=== PATIENT | female | born 1950 | race Caucasian/White ===

== ENCOUNTER 2019-03-25 06:00 | Outpatient (RCR) | payer OTHER, MEDICARE, SELFPAY | END 2019-04-23 23:59 | disposition home or self-care (01) | LOC: SPT 06:00 | PROVIDERS: Family Provider Family Medicine; PCP Family Medicine; Visit Provider Orthopaedic Surgery | DX: Z47.1 Aftercare following joint replacement surgery (principal); Z96.651 Presence of right artificial knee joint | CPT/HCPCS: 97110; 97161 ==

== ENCOUNTER → 2019-04-14 09:23 | Outpatient (BNVA) | payer OTHER, MEDICARE, SELFPAY | PROVIDERS: Family Provider Family Medicine; PCP Family Medicine; Visit Provider Orthopaedic Surgery | DX: Z96.651 Presence of right artificial knee joint (principal); M17.11 Unilateral primary osteoarthritis, right knee; Z98.890 Other specified postprocedural states | CPT/HCPCS: 73560; 73565 ==

== ENCOUNTER 2019-04-24 06:00 | Outpatient (RCR) | payer OTHER, MEDICARE, SELFPAY | END 2019-05-22 23:59 | disposition home or self-care (01) | LOC: SPT 06:00 | PROVIDERS: Family Provider Family Medicine; PCP Family Medicine; Referring Provider Orthopaedic Surgery; Visit Provider Orthopaedic Surgery | DX: Z47.1 Aftercare following joint replacement surgery (principal); Z96.651 Presence of right artificial knee joint | CPT/HCPCS: 97110 ==

== ENCOUNTER → 2019-05-13 08:04 | Outpatient (BNVA) | payer OTHER, MEDICARE, SELFPAY | PROVIDERS: Family Provider Family Medicine; PCP Family Medicine; Visit Provider Orthopaedic Surgery | DX: Z96.651 Presence of right artificial knee joint (principal); M17.11 Unilateral primary osteoarthritis, right knee; Z98.890 Other specified postprocedural states; Z48.89 Encounter for other specified surgical aftercare | CPT/HCPCS: 73560; 73565 ==

== ENCOUNTER 2019-06-08 15:27 | Inpatient (IN) | payer OTHER, MEDICARE, SELFPAY ==
[2019-06-01 09:12] VITALS: BMI 29.0
[2019-06-01 09:45] LABS: Add Urine Microscopic? NO
--- NOTE | 2019-06-01 09:46 | ANES.PREANE2 ---
Pre-Anesthetic Assessment Pre-Anesthetic Assessment: Height/Weight: Height 1.55 m Weight 69.853 kg Preop Diagnosis: DJD left knee Proposed Procedure: Operation Date: 06/08/19 07:00 Proposed Procedures p Left Total Knee Arthroplasty With Imageless computer navigation [id number] M17.12(Left) - Kenton Dougherty DO Familial anesthetic complications: None Was Beta Kayla taken within 24 hours: N/A Social: Social History: No alcohol and No tobacco Exam: Pre-Anes Outpt Exam: alert, oriented x 3, clear to auscultation bilaterally and regular rate & rhythm Airway: Cervical ROM: WNL MP: 2 Dentition: Full Pulmonary: Pulmonary: None reported CV/HEM: CV/HEM: HTN : : None reported Hepatic: Hepatic: None reported GI: GI: None reported Metabolic: Metabolic: None reported Musc/skel: Musc/skel: None reported Neuropsych: Neuropsych: None reported Anesthetic Plan: ASA status: 2 Anesthesia: General and Regional (specify below) Other: adductor Risk of > 500 ml blood loss (7ml/kg in children): No PFSH Anesthesia PFSH: Social History Smoking and tobacco status: never smoked Alcohol intake: never Data Anesthesia Cardiac Studies: No Data to Display
[2019-06-01 09:58] LABS: Eosinophils # 0.2 10^3/uL (0.0-0.8); Hematocrit 42.7 % (37.0-47.0); Hemoglobin 13.3 g/dL (11.5-15.3); Lymphocytes # 1.2 10^3/uL (0.8-4.8); Lymphocytes % 28.4 %; Mean Corpuscular HGB Conc 31.1 g/dL (30.0-36.0); Mean Corpuscular Hemoglobin 29.6 pg (28.0-34.0); Mean Corpuscular Volume 94.9 fL (81-99); Mean Platelet Volume 9.1 fL (7.4-10.4); Monocytes # 0.3 10^3/uL (0.2-0.9); Monocytes % 8.1 %; Neutrophils # 2.4 10^3/uL (1.8-7.7); Neutrophils % 58.3 %; Nucleated Red Blood Cells % 0 %; Platelet Count 306 10^3/cmm (130-400); Red Cell Distribution Width 12.6 % (12.1-15.1); White Blood Count 4.1 10^3/uL (4.0-10.0)
[2019-06-01 10:09] LABS: Bilirubin Urine Neg (NEGATIVE); Blood Urine Neg (Negative); Glucose Urine UA Norm (Normal); Ketones Urine Negative (Negative); Leukocyte Esterase Urine Negative (Negative); Nitrate Urine Negative (Negative); Protein Urine Neg (Negative); Specific Gravity, Urine 1.005 (1.005-1.030); Urine Appearance Clear (CLEAR); Urine Color Straw (Yellow); Urobilinogen Urine Norm (Negative)
[2019-06-01 10:10] LABS: Anion Gap 14.5 (5-19); Blood Urea Nitrogen 21 mg/dL (8-23); Calcium 9.6 mg/dL (8.5-10.5); Carbon Dioxide 25 mmol/L (22-29); Chloride 102 mmol/L (98-107); Glomerular Filtration Rate 62.5 mL/min (90-130); Glucose 100 mg/dL (65-115); Osmolality Calculated 281 mOsm/kg (285-295); Potassium 4.5 mmol/L (3.5-5.1); Sodium 137 mmol/L (136-145)
[2019-06-08] VITALS (13 sets, daily range): BP systolic 122–175; BP diastolic 78–95; PULSE 67–88; RESP 14–20; TEMP 36–36.6; O2SAT 94–99
--- NOTE | 2019-06-08 11:05 | ECG_ITS ---
Measurements Intervals Adams Rate: 75 P: 25 UT: 158 QRS: 9 QRSD: 90 T: 12 QT: 377 QTc: 422 SINUS RHYTHM Compared to ECG 02/12/2019 08:57:56 No significant changes Electronically Signed On 06-08-2019 13:07:32 CDT by Jud Patterson M.D. [email or web address]
[2019-06-08] MEDS: vancomycin 1,000 MG in sodium chloride 0.9% 250 ML 250 MG IV (11:19)
[2019-06-08] MEDS: gabapentin 300 mg Capsule PO (11:22)
[2019-06-08] MEDS: CELEcoxib 200 mg Capsule 400 MG PO (11:24)
[2019-06-08] MEDS: acetaminophen 500 mg Tablet 1000 MG PO ×2 (11:26→20:07)
--- NOTE | 2019-06-08 12:05 | W.PM.OPSUD ---
Surgery/Procedure H&P Update DATE OF PROCEDURE: June 08, 2019 DATE H&P PERFORMED: 05/13/19 H&P UPDATE INFORMATION: I have reviewed H&P completed within last 30 days and No changes to prior documentation PREOP DIAGNOSIS: DJD left knee PRIMARY INDICATION FOR PROCEDURE: as above PLANNED PROCEDURE: Operation Date: 06/08/19 12:35 Proposed Procedures p Left Total Knee Arthroplasty With Imageless computer navigation [id number] M17.12(Left) - Kenton Dougherty DO
--- NOTE | 2019-06-08 12:10 | PM.OP ---
Operative Report Pre-op Diagnosis: DJD left knee Post-op diagnosis: same Procedure Done: Left total knee arthroplasty Imageless computer-assisted navigation Implants: [place] triathlon total knee implants Specimens removed/disposition: Bone and cartilage left knee Surgeon: Kenton Dougherty Anesthesia: Nerve Block (Single shot adductor canal block) Estimated blood loss (mL): 25 Tourniquet time (min): 110 Tourniquet time: At 300 mmHg pressure Findings: Advanced DJD left knee Condition: stable Disposition: PACU Procedure: 2 g Ancef 1 g vancomycin 1 g TXA at incision and at time of closure See other full operative report dated at approximately 1639 hrs.
[2019-06-08] MEDS: midazolam 1 mg/mL INJ 5 ML 5 MG IVP (12:23)
[2019-06-08] MEDS: fentaNYL 50 mcg/mL INJ 2mL 100 MCG IVP (12:24)
--- NOTE | 2019-06-08 12:37 | SUR.PREOP ---
THIS NURSE NOTIFIED PATIENT SHE WOULD HAVE A ISHA-PRIVATE ROOM FOLLOWING SURGERY. SHE WISHES TO PROCEED WITH SURGERY.
--- NOTE | 2019-06-08 14:04 | ANES.PROC ---
Anesthesia Procedures Procedure/Date: 06/08/19 Nerve Block ^: Nerve Block 1: Main Anesthesia: general anesthesia Time Out Performed: Yes Consent: requested by attending/covering physician, risks and benefits reviewed and patient agrees to proceed Nerve block location: adductor canal (left) Anesthesia monitors applied: pulse oximetry, EKG, BP cuff and oxygen Nerve block position: supine Anesthetic Used: ropivicaine 0.5% (30ml) and with decadron (4mg) Amount of anesthesia used (mL): 30 Ultrasound used to: recognize landmarks Nerve Stimulator Used?: No Interscalene/Femoral BLK: 4 stimuplex 21 g needle used for position and inplane approach, visualize local anesthetic spread and no vascular puncture identified Injection: neg aspiration of heme Patient Tolerated Procedure: well and no complications Complications: none
[2019-06-08] MEDS: vancomycin 1,000 MG SDV 1000 MG XX (14:49)
--- NOTE | 2019-06-08 16:39 | PM.OP ---
Operative Report Date of procedure: June 08, 2019 Pre-op Diagnosis: DJD left knee Post-op diagnosis: same Post-op Findings: Advanced DJD left knee Procedure Done: Left total knee arthroplasty with resurfacing of distal femur, proximal tibia and patella Imageless computer-assisted navigation Implants: [place] triathlon knee implants Asymmetric patella 35 mm x 10 mm thickness Speed tibial baseplate size 4 Cemented posterior stabilized femoral component size 4 left 2 distal femoral fixation plugs Triathlon X3 tibial bearing insert posterior stabilized size four 16mm thickness 2 packages of Pal[place]os cement with tobramycin for added antimicrobial prophylaxis Specimens removed/disposition: Bone and cartilage from left knee submitted to pathology Surgeon: Kenton Dougherty Anesthesia: General and Nerve Block (Single shot adductor canal block) Estimated blood loss (mL): 25 Tourniquet time (min): 110 IV fluids (mL): 1,100 Urine output (mL): 850 Complications: No apparent complications Findings: Tricompartmental DJD Condition: stable Disposition: PACU (Then to [facility] floor) Brief History: 69-year-old white female with bilateral progressive disabling knee pain. She is undergone a right total knee arthroplasty she presents for elective left total knee arthroplasty. Risk, benefits and potential complications of surgery have been discussed with the patient. She is aware that risks include are not limited to failure to leave all pain, stiffness, potential for loosening or breakage about the prosthesis that could require revision surgery. Other medical complications include infection, blood clots, heart attack, stroke risk up to including . All questions answered patient agreeable to proceed with surgery. Procedure: 2 g Ancef 1 g vancomycin 1 g of TXA prior to incision and at wound closure [place] triathlon knee components Size 4 left femur posterior stabilized, cemented with distal pegs Size 4 tibia universal baseplate Size 4 x 16 mm posterior stabilized tibial articular surface 2 packages of Palacos cement with tobramycin Patient identified. Surgical site signed. Surgical permit signed. Patient received 1.0 g of Vancomycin and 2 g of Ancef for antimicrobial prophylaxis. Anesthesia team performed an adductor canal block in the preoperative holding area. She was taken to the operating room. She was placed under general anesthesia. A landis catheter was placed for urinary drainage. A gel bump was placed under the ipsilateral buttock. A tourniquet was placed about the upper aspect of the operative left limb. The operative limb was then sterilely prepped and draped usual fashion. The operative limb was exsanguinated using an Esmarch bandage and the tourniquet inflated to 300 mm Hg pressure. A 20 cm midline incision was made with a skin knife. Full-thickness skin flaps were made. Skin edge bleeders were coagulated with electrocautery. Using a second knife we perform a medial parapatellar arthrotomy. Soft tissues were released off the anteromedial aspect of the tibia to the posterior medial corner of the tibia with second knife and Duarte elevator. The anterior horns of the medial and lateral menisci were released and resected. Partial fat pad resection was performed with sharp dissection. The anterior posterior cruciate ligaments were divided sharply. Using electrocautery the lateral patellofemoral ligament was divided. The knee was placed in full extension. The patella was everted. Marginal osteophytes were removed. Electrocautery was taken around the periphery of the patella. The patella cartilage was severely worn in appearance. The patella measured 24 mm in thickness. The patella was reamed to a residual thickness of 14 mm. I elected to resurface the patella with an asymmetric patellar button. A 35 mm template was applied to the tibial surface and peg holes were drilled. The 35 mm by 10 mm in thickness patella trial fit nicely on the cut surface and essentially covered all of the patella.the measured thickness of the patellar trial in the remaining patella measured 24 mm which reproduced the patient's original anatomy. The knee was flexed to 60?. A guidepin for the GemfireAlign navigation device was inserted on the distal femur on Whitesides line. We measured for the anterior posterior offset and input the number. We attached the anterior reference unit. We maneuvered the leg to register the femur. We then set the resection plane at 0? of varus/valgus from the mechanical axis and flexion at 4? for the femoral component. We set the distal femoral resection guide for 11 mm due to the presence of a flexion contracture.. Using an oscillating saw we performed the distal femoral cut. We then secured the tibial cutting jig on the tibia and held in place with a rubberized strap. The guide was put in place and the medial one third of the tibial tubercle and was secured with 3 pins. Tibial registration was performed by first reading and then adjust the distal offset to match the midline probe offset. The side levers were unlocked and we extended the distal probe to match offsets. We then registered the lateral followed by the medial malleolus. We set the varus/valgus angle to 0? and set the posterior slope to 0 degrees. We used the 2 mm stylus set our depth for tibial resection. We then used the oscillating saw to perform our proximal tibial cut. We now at checked our extension space and we were able to put a size 13 spacer in with good stability and to full extension. We sized the femur for a size 4 using the anterior referencing guide. Rotation was set at 3? of external rotation. The 4-in-1 cutting guide was put into place and an samira wing was placed through the anterior cutting guide to assess for the potential of anterior notching. The samira wing passed anterior to the femoral cortex. The 4-in-1 cutting block was pinned into place and the anterior and posterior as well as the chamfer cuts were then performed. The PS cutting block was pinned into place and the box cut was made with an oscillating saw. Lug holes were drilled. A size 4 femoral box cut component was then put on the distal femur. Box cut was then made with reciprocating saw. The knee was flexed to 110? and a PCL retractor was used to subluxate the tibia anteriorly with respect to the femur.The tibia was sized for a size 4. With a 13 mm trial posterior stabilized tibial bearing surface in place the knee was placed through a range of motion the knee could flex to 105 degrees the knee came to full extension. The knee was felt to be stable at 90 degrees of flexion and extension. We removed trial components this improved with a 13 mm thickness trial spacer. We set the rotation by putting the knee through a range of motion and using electrocautery to sudheer rotation on the tibia.The size 4 tibial plate was held in place using headed pins.We then drilled for the stem and punch for the keel. A trial reduction was performed with a 13 mm trial articular surface the knee was able to come to near full extension with a mild degree of effort flexion 110?. The patella tracked nicely with a no touch technique. All trial components were removed from the knee. The knee was irrigated with pulsatile lavage containing antibiotic solution and the joint was dried. We then mixed 2 bags of low viscosity cement with Tobramycin. Tobramycin for additional antimicrobial prophylaxis. The patellar component was cemented in place and held there with the patellar clamp. The Size 4 posterior stabilized femoral component component was cemented into position.. Excess cement was removed using a [place] elevator. The size 4 tibial universal baseplate was cemented and was then impacted into place and the knee was reduced. The cement was allowed to harden. A trial size 4 x 13 mm thickness posterior stabilized tibial articular surface was inserted into place. Components were reduced into position. The knee came to slightly past full extension flexion easily to 110?. The knee was stable to varus /valgus stress. The patella tracked nicely with a no touch technique. Due to the knee coming to slight hyperextension with the trial 13 mm spacer elected to insert an actual 16mm thickness size 4 posterior stabilized articular surface. This was inserted and impacted into place and the knee reduced. The knee was stable to varus/ valgus stress extension and flexion of 90?. The knee came to just slightly shy of full extension. The knee was then irrigated with Betadine-containing saline solution and antibiotic containing saline solution. The knee tendons and capsular structures and joint line were injected with 120 mL of a solution containing Exparel 0.25% Marcaine and sterile saline.FloSeal was then placed in the wound for additional hemostasis within the joint was dried. Vancomycin powder was placed and capsular closure was performed with permanent as well as absorbable barbed suture. The subcutaneous layer was irrigated with Betadine-containing saline solution and antibiotic containing saline solution. Vancomycin powder was also placed in this layer. The tourniquet was deflated. The patient received 1 g of Tranexamic acid intravenously for additional hemostasis prior to closure The wound was then closed in layers with migue on skin as well as skin glue. Sterile dressings were then applied. A compressive Adriel wrap was applied from ankle to groin. The patient was aroused from general anesthesia. Patient was taken to recovery room. Patient tolerated the procedure well. All counts were correct.
--- NOTE | 2019-06-08 17:00 | SUR.PHASEI ---
7271 PT TO PACU SLEEPY WITH GOOD RESP EFFORT ORAL AIRWAY IN PLACE LT KNEE DRESSING D/I
--- NOTE | 2019-06-08 17:04 | SUR.PHASEI ---
1452 PT AWAKES ORAL AIRWAY OUT PT DENIES PAIN VSS LT KNEE D/I 1704 X RAY HERE, PT DENIES PAIN VSS PT ON RA SATS 95%
--- NOTE | 2019-06-08 17:13 | XR_ITS ---
WS: [id number] XR knee LT 1-2V 07593 REASON FOR EXAM: POST OP PIC FINDINGS: Total knee replacement on the left side. The hardware seen in good position. XR/XR knee LT 1-2V 54727 IMPRESSION: Total knee replacement satisfactory alignment.
--- NOTE | 2019-06-08 17:37 | SUR.PHASEI ---
1720 PT TO FLOOR PT AT HOME DR ARTEAGA TALKED WITH HIM PER PHONE AND WITH PT ON FLOOR, PT ALERT TALKATIVE WITH NURSE MITCHELL IN ROOM, PT TAKING SIPS OF COKE, VSS.
--- NOTE | 2019-06-08 17:38 | SUR.PHASEI ---
1720 CONTINUED PT DRESSING TO LT KNEE D/I DISTAL PULSE STRONG REGULAR, LOPEZ TO DD WITH LT CLEAR YELLOW URINE IN TUBING AND BAG, TAPE TO RT THIGH TO SECURE CATHETER.
[2019-06-08] MEDS: chlorhexidine gluconate 0.12% Btl 473 mL 30 ML MUCOUS MEM ×2 (20:05→21:06)
[2019-06-08] MEDS: sennosides-docusate Tablet 2 TAB PO (20:06)
[2019-06-08] MEDS: iron polysaccharide complex 150 mg Capsule PO (20:07)
[2019-06-08] MEDS: mupirocin oint 22 gm 1 APPLIC NASAL (20:08)
[2019-06-08] MEDS: ketorolac 30 mg/mL INJ 15 MG IVP (20:08)
[2019-06-08] MEDS: calcium carbonate 500 mg Chew Tablet 1000 MG PO (21:06)
[2019-06-08] MEDS: apixaban 5 mg Tablet 2.5 MG PO (23:39)
[2019-06-09] VITALS (7 sets, daily range): BP systolic 119–160; BP diastolic 71–85; PULSE 78–98; RESP 16–20; TEMP 36.6–37; O2SAT 92–99
[2019-06-09] MEDS: acetaminophen 500 mg Tablet 1000 MG PO ×3 (01:26→18:07)
[2019-06-09 06:46] LABS: Basophils % 0.2 %; Hemoglobin 12.4 g/dL (11.5-15.3); Lymphocytes # 0.7 10^3/uL (0.8-4.8); Lymphocytes % 6.8 %; Mean Corpuscular HGB Conc 31.8 g/dL (30.0-36.0); Mean Corpuscular Hemoglobin 30.5 pg (28.0-34.0); Mean Corpuscular Volume 95.8 fL (81-99); Mean Platelet Volume 9.5 fL (7.4-10.4); Monocytes # 0.6 10^3/uL (0.2-0.9); Monocytes % 5.5 %; Neutrophils # 8.8 10^3/uL (1.8-7.7); Neutrophils % 87.1 %; Nucleated Red Blood Cells % 0 %; Platelet Count 311 10^3/cmm (130-400); Red Blood Count 4.07 10^6/uL (4.1-5.3); Red Cell Distribution Width 12.6 % (12.1-15.1); White Blood Count 10.1 10^3/uL (4.0-10.0)
[2019-06-09 07:02] LABS: Anion Gap 13.4 (5-19); Blood Urea Nitrogen 18 mg/dL (8-23); Calcium 9.5 mg/dL (8.5-10.5); Carbon Dioxide 26 mmol/L (22-29); Chloride 101 mmol/L (98-107); Glomerular Filtration Rate 55.3 mL/min (90-130); Glucose 119 mg/dL (65-115); Osmolality Calculated 280 mOsm/kg (285-295); Potassium 4.4 mmol/L (3.5-5.1); Sodium 136 mmol/L (136-145)
--- NOTE | 2019-06-09 07:24 | P.PN_ITS ---
Subjective Subjective: Interval history: 69-year-old white female postoperative day 1 following left total knee arthroplasty with imageless computer assisted navigation for general arthritis. No immediate intraoperative or postoperative complications. Plan is to give the patient in-house stay to ensure pain control and safety to ambulate prior to being discharged home. Fernandez catheter to be r emoved today Vitals/I&O/Wt Last Vital Signs Temp 98.6 F 06/09/19 05:20 Pulse 84 06/09/19 05:20 Resp 20 H 06/09/19 05:20 BP 138/85 06/09/19 05:20 Pulse Ox 95 06/09/19 05:20 06/08/19 06/09/19 06/09/19 22:59 06:59 14:59 Intake Total 500 / 550 Output Total 1725 / 1725 1100 / 2825 Balance -1225 / -1175 -1100 / -2275 Physical Exam Narrative: EXAM NARRATIVE: 69-year-old white female in no acute distress. She is alert and cooperative. Pain rated 4/10. Const: COMMON NORMALS: no apparent distress and oriented x3 GENERAL APPEARANCE: cooperative and well developed; not in distress Neck/C-Spine: COMMON NORMALS: no JVD Resp: COMMON NORMALS: normal respiratory effort and clear to auscultation bilaterally AUSCULTATION: clear to auscultation bilaterally Cardio: COMMON NORMALS: no JVD, regular rate, regular rhythm, S1 normal heart sound and S2 normal heart sound RATE: regular rate RHYTHM: regular rhythm HEART SOUNDS: S1 normal and S2 normal Extremity: RIGHT LOWER EXTREMITY: Yes lower leg Right lower leg: Yes special tests Right lower leg special tests: Haritha's sign: Negative LEFT LOWER EXTREMITY: Yes knee joint (dressing clean dry and intact) and Yes lower leg Left lower leg: Yes special tests Left lower leg special tests: Haritha's sign: Negative Neuro: COMMON NORMALS: oriented x3 Urinary Catheter Management^: F: Cath Placed During This Visit: yes Urinary Catheter Date of Insertion: 06/08/19 Urinary Catheter Time of Insertion: 14:30 Data : 06/09/19 05:55 06/09/19 05:55 A&P Assessment and plan (1) Status post total left knee replacement: Finish postoperative IV antibiotics Remove Fernandez catheter Pain control Mobilize VTE prophylaxis mobilization, sequential compression devices and Eliquis. Patient highest risk for VTE. Patient requires continued inpatient level care to ensure adequate pain control that she is able to mobilize safely prior to being discharged home with home health Status: Acute Code(s): Z96.652 - Presence of left artificial knee joint (2) Status post total right knee replacement: surgery performed last year Status: Acute Code(s): Z96.651 - Presence of right artificial knee joint Attestations Medical Necessity Statement*: see assessment and plan above. patient requires continued inpatient level care following left total knee arthroplasty to ensure adequate pain control and to monitor for possible need for transfusion. The patient continues to do well will discharge tomorrow at the earliest. Time Spent in Patient Care: 16 - 35 minutes Coding Level of Care Code Acute Landscape And Yardwork Laborer for Michaelle Osei Diagnoses Status post total left knee replacement Z96.652 Status post total right knee replacement Z96.651
[2019-06-09] MEDS: calcium carbonate 500 mg Chew Tablet 1000 MG PO ×2 (09:19→18:08)
[2019-06-09] MEDS: multivitamin therapeutic Tablet 1 TAB PO (09:19)
[2019-06-09] MEDS: sennosides-docusate Tablet 2 TAB PO ×2 (09:20→18:07)
[2019-06-09] MEDS: losartan 50 mg Tablet 25 MG PO (09:20)
[2019-06-09] MEDS: cholecalciferol (vitamin D3) 1,000 unit Tablet 1000 UNIT PO (09:20)
[2019-06-09] MEDS: iron polysaccharide complex 150 mg Capsule PO ×2 (09:21→18:08)
[2019-06-09] MEDS: apixaban 5 mg Tablet 2.5 MG PO ×2 (09:21→18:07)
[2019-06-09] MEDS: chlorhexidine gluconate 0.12% Btl 473 mL 30 ML MUCOUS MEM ×4 (09:22→20:02)
[2019-06-09] MEDS: mupirocin oint 22 gm 1 APPLIC NASAL ×2 (09:27→18:08)
--- NOTE | 2019-06-09 10:26 | PC.CHAP ---
Pastoral Care Encounter/Spiritual Assessment Type of Contact [] Declined bulkhead carpenter visit [] Patient/Family/Request visit [] Outpatient visit [] Follow-up visit [] Physician referral [] Code/Alert [x] Routine visit [] Staff referral [] Actively dying [] Patient sleeping [] Family support [] [] Out of room [] Palliative care [] [] Receiving care in room [] Pre-surgical visit [] Trauma [] Long length of stay [] ICU visit [] Other: Relational/Emotional Strength [x] Patient feels connected with others/family/visitors/staff [] Distress [] Loneliness/isolation [] Abandonment Spirituality of Patient [x] Person of Anushka [x] Attends Cheondoism of their Anushka [] Believes in Prayer [] Reads Bible or Alevism materials [] There are Spiritual issues to be addressed Desktop Architect Interventions [] Prayer [] Active listening [] Non-anxious presence [] Spiritual/emotional support [] Crisis/trauma care [] Spiritual counseling [] Bereavement support [] Provided bereavement packet [] Provided Bible/devotional materials [] Provided toy/stuffed animal, coloring book to patient or family member [] Provided Communion [] Anointing/[place] [] Salvation [x] Completed spiritual assessment [] Other: Impact on Illness or Injury [] Angry [] Fearful [] Anxious [] Often cries [] Exhaustion [] Unable to work [] Unable to attend voodoo [] Unable to walk/stand [] Unable to read [] Unable to drive [] Unable to eat/drink [] Unable to sleep [] Unable to be with family [] Patient intubated [] Other: Summary patient doing good very happy Time spent with patient 15 min
[2019-06-09] MEDS: vancomycin 1,000 MG in sodium chloride 0.9% 250 ML 250 MG IV (12:29)
[2019-06-09] MEDS: ketorolac 30 mg/mL INJ 15 MG IVP (12:38)
--- NOTE | 2019-06-09 22:42 | PM.DCS ---
Discharge Providers Date of Admission: 06/08/19 15:27 Date of Discharge: June 10, 2019 Attending Provider at Admission: Kenton Dougherty DO Attending Provider at Discharge: Kenton Dougherty DO Primary Care Provider: Terrence Broussard MD Diagnoses at Discharge Discharge Diagnosis (1) Status post total left knee replacement: Status: Acute Problem details: this admission (2) Status post total right knee replacement: Status: Acute Problem details: last year Reason for Visit Reason for Visit: Reason For Visit: degenerative arthritis left knee Brief History: 69-year-old white female with progressive disabling bilateral knee pain. Last year she underwent right total knee arthroplasty. She presents to the hospital this admission for left total knee arthroplasty Hospital Course Hospital Course: Patient was taken to surgery on the date of admission. She underwent left total knee arthroplasty with imageless computer assisted navigation. Surgery went well without complication. Immediate postoperative x-ray show satisfactory placement of components. She received vancomycin and Ancef for surgical prophylaxis intravenously. She was started on sequential compression devices, mobilization and Eliquis for VTE prophylaxis. [facility]. Fernandez catheter was removed on postoperative day 1. Her dressing was clean dry and intact. No calf tenderness bilaterally. Her pain was able to be controlled at the time of discharge oral medication. On postoperative day 2 she was started on extended oral prophylaxis with Ceftin 500 mg by mouth twice a day. She is continued on Eliquis for 2 weeks postoperatively 2.5 mg by mouth twice a day for VTE prophylaxis. Arrangements were made for home health. She will follow-up in the office in approximately 2 weeks time for staple removal. Discussions be had at that time for formal physical therapy and outpatient basis Discharge Summary: see above Physical Exam Narrative: EXAM NARRATIVE: 69-year-old white female doing well following left total knee arthroplasty Const: COMMON NORMALS: no apparent distress and oriented x3 GENERAL APPEARANCE: cooperative and comfortable Resp: COMMON NORMALS: normal respiratory effort and clear to auscultation bilaterally AUSCULTATION: clear to auscultation bilaterally Cardio: COMMON NORMALS: regular rate and regular rhythm RATE: regular rate RHYTHM: regular rhythm GI: COMMON NORMALS: normal to inspection, nondistended, normoactive bowel sounds, soft to palpation and non-tender AUSCULTATION: Yes normoactive bowel sounds PALPATION: Yes soft Extremity: NARRATIVE EXTREMITY EXAM: left knee dressing clean dry and intact. No calf tenderness bilaterally Neuro: COMMON NORMALS: oriented x3 Urinary Catheter Management^: F: Cath Placed During This Visit: yes Urinary Catheter Date of Insertion: 06/08/19 Urinary Catheter Time of Insertion: 14:30 Discharge Data Data Completed and Pending: Completed Studies During Hospitalization Category Date Time Status XR knee LT 1-2V 7 3560 Routine Exams 06/08/19 17:13 Completed Pending at discharge Category Date Time Status Basic Metabolic P delia AM LABS Lab 06/10/19 04:00 Ordered Complete Blood Co unt w/Auto AM LABS Lab 06/10/19 04:00 Ordered Pathology: Surgic al [PTH] Routine Pth 06/08/19 16:34 Received Labs from last 24 hours 06/09/19 06/09/19 05:55 05:55 WBC 10.1 H RBC 4.07 L Hgb 12.4 Hct 39.0 MCV 95.8 MCH 30.5 MCHC 31.8 RDW 12.6 Plt Count 311 MPV 9.5 Neut % (Auto) 87.1 Lymph % (Auto) 6.8 Villalba % (Auto) 5.5 Eos % (Auto) 0.0 Baso % (Auto) 0.2 Neut # (Auto) 8.8 H Lymph # (Auto) 0.7 L Villalba # (Auto) 0.6 Eos # (Auto) 0.0 Baso # (Auto) 0.0 Nucleated RBC % (a uto) 0 Nucleated RBCs # 0.0 Sodium 136 Potassium 4.4 Chloride 101 Carbon Dioxide 26 Anion Gap 13.4 BUN 18 Creatinine 1.0 H GFR Calculation 55.3 L Glucose 119 H Calculated Osmolal ity 280 L Calcium 9.5 Vitals: Last Vital Signs Temp 98.6 F 06/09/19 19:06 Pulse 97 06/09/19 19:06 Resp 18 06/09/19 19:06 BP 160/72 06/09/19 19:06 Pulse Ox 94 06/09/19 19:06 Discharge Plan Discharge Patient Disposition: Home Health Service Condition: Stable Prescriptions: New oxycodone-acetaminophen 5-325 mg tablet 1 tab PO Q4H PRN (Reason: pain) 7 Days Qty: 40 RF: 0 Eliquis 2.5 mg tablet 2.5 mg PO BID Qty: 28 RF: 0 doxycycline monohydrate 100 mg capsule 100 mg PO BID 7 Days Qty: 14 RF: 0 Continued losartan 25 mg tablet 25 mg PO DAILY RF: 0 Vitamin C 1,000 mg Tablet 500 mg PO DAILY RF: 0 Calcium 600 with Vitamin D3 1 tab PO DAILY RF: 0 Discharge Orders: Discharge Order (Routine); Ordered 06/09/19 Ordered By: Kenton Dougherty Referrals: [facility] [place] [facility] ([facility]) [Outside] Kenton Dougherty DO [Physician] - 06/23/19 10:00 am (wound check, staple removal) Discharge Diet: Usual diet Discharge Activity: Limit activity as instructed, Use walker/crutches as instructed and As per PT/OT instructions Patient Instructions: Doxycycline (By mouth), Oxycodone/Acetaminophen (By mouth), Apixaban (By mouth), Total Knee Replacement (DC) Activity Restrictions/Additional Instructions: gait and transfer training begin with walker may progress to cane as tolerated Quad sets, active and passive range of motion. 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
[2019-06-10] VITALS (7 sets, daily range): BP systolic 158–162; BP diastolic 74–90; PULSE 91–106; RESP 16–20; TEMP 36.7–37; O2SAT 93–97
[2019-06-10] MEDS: acetaminophen 500 mg Tablet 1000 MG PO ×2 (00:22→04:58)
[2019-06-10] MEDS: ketorolac 30 mg/mL INJ 15 MG IVP (04:57)
[2019-06-10 08:32] LABS: Basophils % 0.3 %; Eosinophils % 0.3 %; Hematocrit 32.9 % (37.0-47.0); Hemoglobin 10.4 g/dL (11.5-15.3); Lymphocytes # 1.1 10^3/uL (0.8-4.8); Lymphocytes % 17.7 %; Mean Corpuscular HGB Conc 31.6 g/dL (30.0-36.0); Mean Corpuscular Hemoglobin 30.3 pg (28.0-34.0); Mean Corpuscular Volume 95.9 fL (81-99); Mean Platelet Volume 9.8 fL (7.4-10.4); Monocytes # 0.5 10^3/uL (0.2-0.9); Monocytes % 8.8 %; Neutrophils # 4.4 10^3/uL (1.8-7.7); Neutrophils % 72.7 %; Nucleated Red Blood Cells % 0 %; Platelet Count 278 10^3/cmm (130-400); Red Blood Count 3.43 10^6/uL (4.1-5.3); Red Cell Distribution Width 13.1 % (12.1-15.1); White Blood Count 6.1 10^3/uL (4.0-10.0)
[2019-06-10] MEDS: calcium carbonate 500 mg Chew Tablet 1000 MG PO (08:32)
[2019-06-10] MEDS: cholecalciferol (vitamin D3) 1,000 unit Tablet 1000 UNIT PO (08:32)
[2019-06-10] MEDS: mupirocin oint 22 gm 1 APPLIC NASAL (08:32)
[2019-06-10] MEDS: losartan 50 mg Tablet 25 MG PO (08:33)
[2019-06-10] MEDS: apixaban 5 mg Tablet 2.5 MG PO (08:33)
[2019-06-10] MEDS: multivitamin therapeutic Tablet 1 TAB PO (08:33)
[2019-06-10] MEDS: iron polysaccharide complex 150 mg Capsule PO (08:34)
[2019-06-10] MEDS: chlorhexidine gluconate 0.12% Btl 473 mL 30 ML MUCOUS MEM (08:34)
[2019-06-10] MEDS: oxyCODONE 5 mg IR Tab/Cap PO (08:40)
[2019-06-10 08:55] LABS: Anion Gap 17.3 (5-19); Blood Urea Nitrogen 27 mg/dL (8-23); Calcium 9.1 mg/dL (8.5-10.5); Carbon Dioxide 22 mmol/L (22-29); Chloride 104 mmol/L (98-107); Glomerular Filtration Rate 55.3 mL/min (90-130); Glucose 85 mg/dL (65-115); Osmolality Calculated 284 mOsm/kg (285-295); Potassium 4.3 mmol/L (3.5-5.1); Sodium 139 mmol/L (136-145)
== END 2019-06-10 13:42 | disposition home health service (06) | DRG 470 ==
LOC: MEDSURG 15:27
PROVIDERS: Admitting Provider Orthopaedic Surgery; Family Provider Family Medicine; PCP Family Medicine; Visit Provider Orthopaedic Surgery
PROC: 0SRD0J9 Replacement of Left Knee Joint with Synthetic Substitute, Cemented, Open Approach (ICD-10-PCS; CPT 27447; principal; 2019-06-08 12:35)
DX: M17.12 Unilateral primary osteoarthritis, left knee (principal); Z96.652 Presence of left artificial knee joint; I10 Essential (primary) hypertension
CPT/HCPCS: 12345; 36415; 51702; 73560; 80048; 81003; 85025; 86850; 86900; 88304; 93005; 96374; 96375; 97110; 97116; 97162; 97165; 97530; C1776; C9290; J0330; J0690; J1100; J1580; J1885; J2001; J2250; J2405; J2704; J2795; J3010; J3370; J3490; J7050

== ENCOUNTER 2019-07-12 06:00 | Outpatient (RCR) | payer OTHER, MEDICARE, SELFPAY | END 2019-07-22 23:59 | disposition home or self-care (01) | LOC: SPT 06:00 | PROVIDERS: Family Provider Family Medicine; PCP Family Medicine; Referring Provider Orthopaedic Surgery; Visit Provider Orthopaedic Surgery | DX: Z47.89 Encounter for other orthopedic aftercare (principal); Z96.652 Presence of left artificial knee joint | CPT/HCPCS: 97110; 97161 ==

== ENCOUNTER 2019-07-23 06:00 | Outpatient (RCR) | payer OTHER, MEDICARE, SELFPAY | END 2019-08-22 23:59 | disposition home or self-care (01) | LOC: SPT 06:00 | PROVIDERS: PCP Family Medicine; Referring Provider Orthopaedic Surgery; Visit Provider Orthopaedic Surgery | DX: Z47.1 Aftercare following joint replacement surgery (principal); Z96.652 Presence of left artificial knee joint | CPT/HCPCS: 97110 ==

== ENCOUNTER → 2020-07-26 13:53 | Outpatient (BNVA) | payer OTHER, MEDICARE, SELFPAY | PROVIDERS: PCP Family Medicine; Visit Provider Orthopaedic Surgery | DX: M65.4 Radial styloid tenosynovitis [de Quervain] (principal); M65.331 Trigger finger, right middle finger | CPT/HCPCS: 73110 ==

== ENCOUNTER → 2020-07-28 09:14 | Outpatient (BNVA) | payer OTHER, MEDICARE, SELFPAY | PROVIDERS: PCP Family Medicine; Visit Provider Orthopaedic Surgery | DX: Z01.812 Encounter for preprocedural laboratory examination (principal); Z20.822 Contact with and (suspected) exposure to COVID-19 | CPT/HCPCS: 87635 ==

== ENCOUNTER 2020-08-03 11:24 | Day surgery (SDC) | payer OTHER, MEDICARE, SELFPAY ==
[2020-08-02 13:45] VITALS: BMI 28.5
[2020-08-03] VITALS (7 sets, daily range): BP systolic 150–168; BP diastolic 80–103; PULSE 69–73; RESP 16–20; TEMP 36.2–36.6; O2SAT 94–98
[2020-08-03] MEDS: sodium chloride 0.9% 1,000 ML 30 ML IV (12:14)
--- NOTE | 2020-08-03 12:49 | ANES.PREANE2 ---
Pre-Anesthetic Assessment Pre-Anesthetic Assessment: Height/Weight: Height 1.55 m Weight 68.492 kg Temp Pulse Resp BP Pulse Ox 97.6 F 71 16 166/103 98 08/03/20 11:41 08/03/20 11:41 08/03/20 11:41 08/03/20 11:41 08/03/20 11:41 Preop Diagnosis: Trigger finger right long finger, de Quervain's tenosynovitis right wrist Proposed Procedure: Operation Date: 08/03/20 12:55 Proposed Procedures p Dequervain Release [id number](Right) - Glenn Will MD Familial anesthetic complications: None Was Beta Kayla taken within 24 hours: Yes Was Clonidine taken within 24 hours: N/A Last intake: Intake Last Liquid Date 08/02/20 Last Liquid Time 21:00 Last Solid Date 08/02/20 Last Solid Time 21:00 Social: Social History: No alcohol and No tobacco Exam: Pre-Anes Outpt Exam: alert, oriented x 3, clear to auscultation bilaterally and regular rate & rhythm Airway: Cervical ROM: WNL MP: 3 Dentition: Full CV/HEM: CV/HEM: HTN Anesthetic Plan: ASA status: 2 Anesthesia: Regional (specify below) (mario block) Risk of > 500 ml blood loss (7ml/kg in children): No Meds/Allergies Current Medications: Current Medications Generic Name Dose Route Start Last Admin Trade Name Freq PRN Reason Stop Dose Admin Sodium Chloride 1,000 mls @ 30 ml s/hr 08/03/20 11:30 08/03/20 12:14 Sodium Chloride 0.9% IV 08/04/20 11:29 30 mls/hr .Q24H MOOSE Administration PFSH Anesthesia PFSH: Surgical History Status post total left knee replacement Status post total right knee replacement last year Social History Smoking and tobacco status: never smoked Alcohol intake: never Data Anesthesia Cardiac Studies: No Data to Display
--- NOTE | 2020-08-03 12:51 | W.PM.OPSUD ---
Surgery/Procedure H&P Update DATE OF PROCEDURE: August 03, 2020 DATE H&P PERFORMED: 07/26/20 PREOP DIAGNOSIS: Trigger finger right long finger, de Quervain's tenosynovitis right wrist PLANNED PROCEDURE: Operation Date: 08/03/20 12:55 Proposed Procedures p Cresencio Release [id number](Right) - Glenn Will MD
[2020-08-03] MEDS: clindamycin 600 MG/50 ML PREMIX 100 MG IV (12:58)
--- NOTE | 2020-08-03 13:57 | P.OP_ITS ---
Operative Report Date of procedure: August 03, 2020 Pre-op Diagnosis: Trigger finger right long finger, de Quervain's tenosynovitis right wrist Post-op diagnosis: same Post-op Findings: Same Procedure Done: Release right first extensor compartment wrist, right long finger trigger finger release Pathology: none sent Surgeon: Glenn Will Anesthesia: Nerve Block (Miriam block) Estimated blood loss (mL): 5 Tourniquet time (min): 37 Complications: None Findings: No masses or space-occupying lesions were seen about the tendons of the first extensor compartment of the wrist or of the long finger flexor tendons at the level of the A1 loli. The tendons appeared to be healthy. At the first extensor compartment 3 tendinous slips were identified, 2 of the abductor pollicis longus and one smaller tendon of the extensor pollicis brevis located, the latter located in a second septated compartment Condition: stable Disposition: PACU Procedure: The patient was taken to the operating room and a Miriam block was provided by anesthesia. They were prepped and draped in the usual fashion a timeout was performed. Her skin was tested to ensure adequacy of the block. A centimeter and half in the transverse incision was made radially over the tip of the radial styloid. Dissection was carried down bluntly through the deep tissues revealing the first extensor compartment of the wrist. 2 branches of the abductor pollicis longus tendon were identified distally. Dissection was then accomplished along the extensor sheath proximally with scissors over a distance of approximately 10 mm until the tendons were freed of any constrictions. Tendons were retracted with a blunt retractor revealing a small second additional compartments containing a small extensor pollicis brevis tendon. This tendon was a similarly freed from its sheath with blunt scissors. The wound was irrigated with saline. The skin is well infiltrated with 6 cc of 1/2% Marcaine solution. I transverse incision was made over the level of A-1 loli in the palm over a distance of approximately a centimeter at the base of the long finger.. Under loupe magnification blunt dissection was accomplished down to the A1 loli. With adequate visualization a scalpel was used to divide the central 8 mm of gavin t structure. Blunt scissors were then used to extend the release approximately 5 mm proximally and 5 mm distally. Tendons were pulled the road and inspected to assure there health. Skin edges were infiltrated with 4 cc of 0.5%n Marcaine. The skin edges were closed with 3-0 Prolene compressive dressings were applied. A bulky compressive dressing was applied about the thumb using 4 x 4 fluffs, cast padding, and a 2 inch Adriel wrap. The patient was taken to recovery room in stable condition.
--- NOTE | 2020-08-03 18:01 | ANE.PACU2 ---
Inpatient post-anesthesia follow up: Airway intact: Yes Vital signs: Temperature 98 F Pulse Rate 70 Respiratory Rate 16 Blood Pressure 150/84 Pulse Oximetry 97 Oxygen Delivery Me thod Room Air Oxygen Flow Rate Fraction of Inspir ed Oxygen Hydration adequate: Yes Nausea and vomiting: No Pain level: 3 Mental status: Baseline
== END 2020-08-03 15:00 | disposition home or self-care (01) ==
PROVIDERS: PCP Family Medicine; Visit Provider Orthopaedic Surgery
PROC: (CPT 25000; principal; 2020-08-03 12:45)
DX: M65.331 Trigger finger, right middle finger (principal); M65.4 Radial styloid tenosynovitis [de Quervain]; I10 Essential (primary) hypertension
CPT/HCPCS: 25000; 26055; J2250; J2704; J3490; J7030

== ENCOUNTER → 2020-11-03 13:33 | Outpatient (BNVA) | payer OTHER, MEDICARE, SELFPAY | PROVIDERS: PCP Family Medicine; Visit Provider Nurse Practitioner Family | DX: Z20.828 Contact with and (suspected) exposure to other viral communicable diseases (principal) | CPT/HCPCS: 87635 ==

== ENCOUNTER 2020-11-07 14:01 | Outpatient (CLI) | payer OTHER, MEDICARE, SELFPAY ==
--- NOTE | 2020-11-07 14:15 | XRR_ITS ---
PROCEDURE INFORMATION: Exam: XR Lumbosacral Spine Exam date and time: 11/07/2020 2:15 PM Age: 70 years old Clinical indication: Patient HX: --low back pain radiates to lt hip and down leg into lt foot. ; Additional info: Left lumbar radiculopathy TECHNIQUE: Imaging protocol: XR of the lumbosacral spine. Views: 2 or 3 views. COMPARISON: CR XR knees AP WB w RT lmt ORTH 05/13/2019 8:09 AM FINDINGS: Bones/joints: Grade 1 borderline grade 2 anterolisthesis of L4 on L5. Mild multilevel intervertebral disc height loss throughout the lumbar spine with associated mild endplate degenerative changes. Lower lumbar facet arthropathy is noted. Ankylosis of the superior articulations of the sacroiliac joint spaces noted. Soft tissues: Unremarkable. XR/XR lumbar spine 2-3V* [id number] IMPRESSION: Mild multilevel degenerative disc disease and spondylosis of the lumbar spine with grade 1 borderline grade 2 anterolisthesis of L4 on L5.
== END 2020-11-07 14:02 | disposition home or self-care (01) ==
PROVIDERS: PCP Family Medicine; Visit Provider Family Medicine
DX: M54.16 Radiculopathy, lumbar region (principal); M51.36 Other intervertebral disc degeneration, lumbar region; M47.816 Spondylosis without myelopathy or radiculopathy, lumbar region
CPT/HCPCS: 72100

== ENCOUNTER → 2020-11-09 08:10 | Outpatient (BNVA) | payer OTHER, MEDICARE, SELFPAY | PROVIDERS: PCP Family Medicine; Referring Provider Family Medicine; Visit Provider Podiatrist Foot & Ankle Surgery | DX: M79.671 Pain in right foot (principal); M79.672 Pain in left foot; M21.612 Bunion of left foot; M21.611 Bunion of right foot; M77.32 Calcaneal spur, left foot; M77.31 Calcaneal spur, right foot | CPT/HCPCS: 73630 ==

== ENCOUNTER 2020-11-09 11:46 | Outpatient (CLI) | payer OTHER, MEDICARE, SELFPAY | END 2020-11-09 11:47 | disposition home or self-care (01) | LOC: SPT 11:46 | PROVIDERS: PCP Family Medicine; Visit Provider Podiatrist Foot & Ankle Surgery | DX: Z47.1 Aftercare following joint replacement surgery (principal); Z96.652 Presence of left artificial knee joint | CPT/HCPCS: 97760; L4397 ==

== ENCOUNTER → 2020-11-22 10:46 | Outpatient (BNVA) | payer OTHER, MEDICARE, SELFPAY | PROVIDERS: PCP Family Medicine; Visit Provider Orthopaedic Surgery | DX: Z01.812 Encounter for preprocedural laboratory examination (principal); Z20.822 Contact with and (suspected) exposure to COVID-19 | CPT/HCPCS: 87635 ==

== ENCOUNTER 2020-12-04 06:43 | Outpatient (CLI) | payer OTHER, MEDICARE, SELFPAY ==
--- NOTE | 2020-12-04 07:13 | MR_ITS ---
WS: [id number] MRI LEFT ANKLE without CONTRAST. COMPARISON: 11/09/2020 Multiplanar, multisequence imaging is performed without contrast. There is a near complete tear involving the distal Achilles tendon. A small portion of the tendon rem ains intact medially. There is a focal gap extending over a length of 3.5 cm involving greater than 5 0% of the tendon and the transverse diameter. There is also thickening of the distal 7 cm of the Achi lles tendon above the tear. Small amount of edema in the retrocalcaneal bursa. There is also edema at the insertion site of the Achilles tendon adjacent to the calcaneus. There is edema in the posterior calcaneus. There is also increased fluid and signal extending through the posterior calcaneofibular ligament. Th ere is a small amount of increased fluid in the anterior and posterior recesses at the ankle. There i s increased fluid signal consistent with edema involving the medial tibia with a corresponding edema along the medial aspect of the talar dome. No definite fracture identified. MR/MR ankle LT wo con* [id number] IMPRESSION: 1. Near complete tear involving the distal Achilles tendon. Small portion of t he medial Achilles tendon remains intact. Tear involves greater than 50% of the tendon. 2. Marked tendinopathy distal Achilles tendon above the tear. 3. Small amount of marrow edema medial talus and at the medial talar dome. 4. Small joint effusion. 5. Mild sprain calcaneofibular ligament.
== END 2020-12-04 06:44 | disposition home or self-care (01) ==
LOC: RADSHAW 06:49
PROVIDERS: PCP Family Medicine; Visit Provider Podiatrist Foot & Ankle Surgery
DX: S86.012A Strain of left Achilles tendon, initial encounter (principal); M25.472 Effusion, left ankle; S93.412A Sprain of calcaneofibular ligament of left ankle, initial encounter; X58.XXXA Exposure to other specified factors, initial encounter; R60.0 Localized edema
CPT/HCPCS: 73721

== ENCOUNTER → 2020-12-05 10:38 | Outpatient (BNVA) | payer OTHER, MEDICARE, SELFPAY | PROVIDERS: PCP Family Medicine; Visit Provider Orthopaedic Surgery | DX: M54.5 Low back pain (principal) | CPT/HCPCS: 72120 ==

== ENCOUNTER 2020-12-12 14:39 | Outpatient (CLI) | payer OTHER, MEDICARE, SELFPAY | END 2020-12-12 14:40 | disposition home or self-care (01) | LOC: SPT 14:45 | PROVIDERS: PCP Family Medicine; Visit Provider Podiatrist Foot & Ankle Surgery | DX: Z46.89 Encounter for fitting and adjustment of other specified devices (principal); M25.572 Pain in left ankle and joints of left foot | CPT/HCPCS: 97760; L4361 ==

== ENCOUNTER 2020-12-26 10:05 | Outpatient (CLI) | payer OTHER, MEDICARE, SELFPAY ==
--- NOTE | 2020-12-26 10:14 | MR_ITS ---
WS: [id number] MRI LUMBAR SPINE NONCONTRAST HISTORY: DORSALGIA COMPARISON: None available. TECHNIQUE: Sagittal and axial multisequence imaging is submitted. Marked increase in thoracic kyphosis. Moderate increase in the lumbar lordosis. 5 mm anterolisthesis of L4. Mild LEFT scoliosis. Mild disc space narrowing and desiccation throughout the lumbar spine. No fractures or marrow edema. Conus terminates normally at L1-2 disc level. L1-L2: Mild annular disc bulging with mild ligamentum flavum hypertrophy. Very mild foraminal narrowi ng. L2-L3: Mild annular disc bulging with mild ligamentum flavum hypertrophy. There is a tiny central dis c protrusion. Very mild narrowing of the subarticular recesses and foramen. More significant osteoart hritic at the RIGHT facet joint causing moderate RIGHT and mild LEFT foraminal narrowing. L3-L4: Diffuse annular disc bulging and mild osteophytic ridging. Moderate bilateral ligamentum flavu m hypertrophy and facet arthritis. Greater facet joint arthritis on the RIGHT. Mild to moderate centr al, bilateral subarticular recess and foraminal stenosis. L4-L5: Diffuse annular disc bulging and osteophytic ridging. Moderate ligamentum flavum hypertrophy a nd facet joint arthritis. Severe central, bilateral subarticular recess and moderate foraminal stenos is. L5-S1: Mild annular disc bulging. Mild ligamentum flavum hypertrophy and facet arthritis. Facet joint osteophyte encroaches towards the LEFT lateral recess and does abut and slightly deformed the LEFT S 1 nerve root. There is a facet joint cyst measuring 5 mm on the RIGHT. MR/MR lumbar spine wo con* [id number] IMPRESSION: 1. Severe central, bilateral subarticular recess and moderate foraminal stenos is at L4-5. 2. L4 anterolisthesis by 5 mm. 3. Asymmetric facet joint arthritis at L5-S1. LEFT facet joint osteophyte encr oaches upon the LEFT S1 nerve root causing narrowing of the subarticular recess and lateral recess. 4. Mild to moderate central, bilateral subarticular recess and foraminal steno sis at L3-4. 5. Moderate RIGHT foraminal stenosis at L2-3 due to asymmetric facet joint art hritis on the RIGHT which is moderate.
== END 2020-12-26 10:06 | disposition home or self-care (01) ==
PROVIDERS: PCP Family Medicine; Visit Provider Orthopaedic Surgery
DX: M54.50 Low back pain, unspecified (principal); M48.061 Spinal stenosis, lumbar region without neurogenic claudication; M47.817 Spondylosis without myelopathy or radiculopathy, lumbosacral region; M25.78 Osteophyte, vertebrae
CPT/HCPCS: 72148

== ENCOUNTER 2021-01-30 06:00 | Outpatient (RCR) | payer OTHER, MEDICARE, SELFPAY | END 2021-02-20 23:59 | disposition home or self-care (01) | LOC: SPT 06:00 | PROVIDERS: PCP Family Medicine; Referring Provider Podiatrist Foot & Ankle Surgery; Visit Provider Podiatrist Foot & Ankle Surgery | DX: S99.929D Unspecified injury of unspecified foot, subsequent encounter (principal); X58.XXXD Exposure to other specified factors, subsequent encounter | CPT/HCPCS: 97110; 97161 ==

== ENCOUNTER 2021-02-21 06:00 | Outpatient (RCR) | payer OTHER, MEDICARE, SELFPAY | END 2021-03-02 23:59 | disposition home or self-care (01) | LOC: SPT 06:00 | PROVIDERS: PCP Family Medicine; Referring Provider Podiatrist Foot & Ankle Surgery; Visit Provider Podiatrist Foot & Ankle Surgery | DX: S86.002D Unspecified injury of left Achilles tendon, subsequent encounter (principal); X58.XXXD Exposure to other specified factors, subsequent encounter | CPT/HCPCS: 97110 ==

== ENCOUNTER → 2021-03-05 09:43 | Outpatient (BNVA) | payer OTHER, MEDICARE, SELFPAY | PROVIDERS: PCP Family Medicine; Visit Provider Orthopaedic Surgery | DX: Z20.822 Contact with and (suspected) exposure to COVID-19 (principal) | CPT/HCPCS: 87635 ==

== ENCOUNTER 2021-03-09 13:35 | Observation (INO) | payer MEDICARE, SELFPAY ==
[2021-03-05 10:17] VITALS: BMI 30.8
--- NOTE | 2021-03-05 15:48 | ANES.PREANE2 ---
Pre-Anesthetic Assessment Pre-Anesthetic Assessment: Height/Weight: Height 1.55 m Weight 73.936 kg Preop Diagnosis: L4/5 Spondylolisthesis Proposed Procedure: Operation Date: 03/09/21 09:30 Proposed Procedures p Posterior Lumbar Interbody Fusion L4/5 10960 30073 09308 78353 M43.16(Not Applicable) - Timothy Hurley, DO Was Beta Kayla taken within 24 hours: Yes Was Clonidine taken within 24 hours: N/A Social: Social History: No alcohol and No tobacco Exam: Pre-Anes Outpt Exam: alert, oriented x 3, clear to auscultation bilaterally and regular rate & rhythm Airway: Submandibular: WNL Cervical ROM: WNL MP: 2 Dentition: Full CV/HEM: CV/HEM: HTN Musc/skel: Musc/skel: Lower Back Pain and OA/DJD Anesthetic Plan: ASA status: 2 Anesthesia: General Other: PONV Risk of > 500 ml blood loss (7ml/kg in children): No PFSH Anesthesia PFSH: Surgical History Status post total left knee replacement Status post total right knee replacement last year Social History Alcohol intake: never Data Anesthesia Cardiac Studies: No Data to Display
[2021-03-09] VITALS (19 sets, daily range): BP systolic 106–205; BP diastolic 64–109; PULSE 65–88; RESP 13–23; TEMP 36.1–36.8; O2SAT 90–100; BMI 30.8
--- NOTE | 2021-03-09 | XR_ITS ---
WS: [id number] XR lumbar spine 2-3V* [id number] REASON FOR EXAM: or pic, spondylolisthesis FINDINGS: Intraoperative imaging demonstrates placement of pedicle screws at L4-L5 with interbody fusion device in the L4-L5 interspace. Surgical appliances are in proper position and alignment. There is degree of anterolisthesis of L4 on L5 compared to previous examination 12/05/2020. XR/XR lumbar spine 2-3V* [id number] IMPRESSION: Postoperative lumbar spine as above.
--- NOTE | 2021-03-09 | SCC_ITS ---
Procedure Done: 1. L4/5 Interbody fusion with posterolateral fusion 2. Instrumentation L4/5 3. Cage at L4/5 4. Laminectomy L4 5. use of autograft from same incision 6. allograft 7. Bone marrow aspirate from right iliac crest 8. Use of computer navigation/ stereotactic for spine 12 seconds of fluoroscopic guidance, for a cumulative dose of 29.6 mGy, was provided to Dr. Hurley by the radiology department. C-arm images of the lumbar spine were saved for the patient's permanent record. JOE
[2021-03-09] MEDS: sodium chloride 0.9% 1,000 ML 30 ML IV ×2 (08:30→12:30)
--- NOTE | 2021-03-09 08:47 | P.ANESUD_ITS ---
Pre-Anesthetic Update Pre-Anesthetic Assessment: Date of Surgery/Procedure: 03/09/21 Preop Alyssia gnosis: Trigger finger right long finger, de Quervain's tenosynovitis right wrist Proposed Procedure: Operation Date: 03/09/21 09:30 Proposed Procedures p Posterior Lumbar Interbody Fusion L4/5 37424 52935 06167 [id number] M43.16(Not Applicable) - Timothy H Mei, DO Last Intake: Intake Last Liquid Date 03/08/21 Last Liquid Time 20:00 Last Solid Date 03/08/21 Last Solid Time 20:00 Vitals: Temperature 97.9 F 03/09/21 08:18 Temperature Source Temporal Artery S can 03/09/21 08:18 Pulse Rate 65 03/09/21 08:18 Pulse Rhythm 03/09/21 08:18 Pulse Strength 3+ Normal 03/09/21 08:18 Respiratory Rate 18 03/09/21 08:18 Blood Pressure 205/109 03/09/21 08:18 Blood Pressure Sandee n 141 03/09/21 08:18 Pulse Oximetry 97 03/09/21 08:18 Oxygen Delivery Me thod 03/09/21 08:18 Cardiac Studies: No Data to Display
--- NOTE | 2021-03-09 09:12 | PM.HP ---
Providers/Chief Complaint Primary Care Provider: Terrence Broussard MD Chief Complaint: Spondylolisthesis History of Present Illness Veronique Curiel is a 70 year old female Details: This is an established (Nicolette) 70 year old female patient who is new to Dr. Hurley. Patient is here today due to lower back pain. Patient states that pain has been present for months and is getting worse. Onset: chronic Duration: 7-8 months Characteristics:sharp Severity: 6 Location: lower back Radiating symptoms: left leg to foot Aggravating factors: standing, walking, bending, twisting Alleviating factors: pain meds Neuro deficits: Left leg numbness, tingling, weakness Prior tx: Chiropractor Goals: Open to options Review of Systems Narrative: General ROS: negative for weight changes, fever ENT ROS: negative for nasal congestion, drainage or bleeding, sore throat, dysphagia or ear pain Eyes: PERRL Hematological and Lymphatic ROS: negative for swollen glands or abnormal bleeding Endocrine ROS: negative for polyuria/polydpsia or new changes in weight Respiratory ROS: negative for cough, shortness of breath, or wheezing Cardiovascular ROS: negative for chest pain or dyspnea on exertion Gastrointestinal ROS: negative for reflux, abdominal pain, change in bowel habits, or black or bloody stools Musculoskeletal ROS: negative for back pain, neck pain, or joint pain or swelling except for current problem Neurological ROS: negative for TIA or stoke symptoms Skin: no rashes Medications/Allergies Home Medications Medication Instructions Recorded Confirmed Last Taken Type Calcium 600 with Vitamin D3 1 tab PO DAILY 06/01/19 03/09/21 1 Day Ago History ~03/08/21 losartan 25 mg PO DAILY 06/01/19 03/09/21 1 Day Ago History ~03/08/21 metoprolol succinate 25 mg PO DAILY 08/02/20 03/09/21 03/09/21 06:30 History multivitamin with minerals 1 tab PO DAILY 08/02/20 03/09/21 1 Day Ago History [Hair,Skin and Nails] ~03/08/21 Allergies Allergy/AdvReac Type Severity Reaction Status Date / Time cephalexin Allergy Unknown rash Verified 03/05/21 10:15 PFSH Acute PFSH: Surgical History Status post total left knee replacement Status post total right knee replacement last year Social History Alcohol intake: never Vitals/I&O/Wt Last Vital Signs Temp 97.9 F 03/09/21 08:18 Pulse 65 03/09/21 08:18 Resp 18 03/09/21 08:18 BP 205/109 03/09/21 08:18 Pulse Ox 97 03/09/21 08:18 Physical Exam Narrative: EXAM NARRATIVE: CONSTITUTIONAL: The patient is a normal appearing [] in no apparent distress. GENERAL: Patient in no acute distress. CARDIAC: Regular rate and rhythm. CHEST: Normal inspiratory effort, normal respiratory rate. ABDOMEN: Soft and nontender. SKIN: Clear, warm and intact. NEURO?PSYCH: The patient is alert and oriented to person, place and time. Sensorv /SILT Motor StrengthShoulder abduction C5 5/5Wrist extension C6 5/5Elbow extension C7 5/5Hand Retread Supervisor C8 5/5Finger abduction T15/5 Radial/ Ulnar/ Median n intact LowerSensory (SILT)Motor StrengthHin flexion L2/3Ant/inner thigh 5/5Hip adduction L2/3 5/5Knee extension L4 Lat thigh, 5/5Toe dorsiflexion L5 5/5Ankle dorsiflexion L5/ [id number] flexion S1 5/5 DTRBleeps 2+Triceps 2+Brachioradialis 2+Patellar 2+Achilles 2+ MUSCULOSKELETAL: [] UPPEREXTREMITIES: The patient had full active ROM in fingers, wrist, elbow, and shoulder. The patient demonstrated ability to fully flex/extend/abduct/adduct fingers, make ok sign, cross 2nd/3rd digits, extend 1st digit fully.. Radial pulse 2+, CR<2 seconds. LOWER EXTREMITIES: Pt has full, active ROM of toes, ankle, knee, and hip. Dorsalis pedis/posterior tibialis pulses 2+, CR<2 seconds. SPINE: Skin warm, dry, intact. 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
[2021-03-09] MEDS: diphenhydrAMINE 50 mg/mL SDV 1mL 12.5 MG IVP (09:15)
[2021-03-09] MEDS: scopolamine 1.5 Patch 1 PATCH TRANSDERMA (09:15)
[2021-03-09] MEDS: clindamycin 900 MG/50 ML PREMIX 100 MG IV ×3 (09:50→20:47)
[2021-03-09] MEDS: heparin, porcine 1,000 unit/mL INJ 10 mL 10000 UNIT IRRIGATION (11:13)
[2021-03-09] MEDS: vancomycin 1,000 MG SDV 1000 MG XX (11:14)
--- NOTE | 2021-03-09 12:30 | P.OP_ITS ---
Operative Report Date of procedure: March 09, 2021 Pre-op Diagnosis: L4/5 spondylolisthesis; Lumbar stenosis with neurogenic claudication Post-op diagnosis: same Procedure Done: 1. L4/5 Interbody fusion with posterolateral fusion 2. Instrumentation L4/5 3. Cage at L4/5 4. Laminectomy L4 5. use of autograft from same incision 6. allograft 7. Bone marrow aspirate from right iliac crest 8. Use of computer navigation/ stereotactic for spine Surgeon: Timothy Hurley Chairman & Ceo: Delmar Yang Chairman & Ceo: The glass ribbon machine operator assistant, Delmar Yang, PAC was needed for his expertise under the microscope. He was important and necessary throughout the procedure to complete in a safe and timely manner. He assisted with patient positioning prepping and draping tissue retraction suctioning of the operative field protection of the dural sac and tissue closure Anesthesia: General Estimated blood loss (mL): 200 Condition: stable Disposition: PACU Procedure: Patient is brought to the operative suite. After undergoing anesthesia, the patient had neuro monitoring attached. Patient was then placed in the prone position on the Mehrdad table. All areas of impingement were well- padded. Patient was then prepped and draped in the normal sterile fashion. Skin incision was then made over the L4/5 space. Subperiosteal dissection was made out to the transverse processes of L4 and L5. Once the exposure was complete attention was then brought to getting the bone marrow aspirate from the right iliac crest. The [employer] bone marrow aspirate kit was used to aspirate bone marrow aspirate from the right iliac crest. This was done by using the sharp probe to open up the bone. Aspiration was performed and then the blunt probe was then used to dissect down to through the bone tunnel. An aspirating well drawn back a millimeter approximately 20 cc of bone marrow aspirate was used. Admixed with the allograft and autograft bone that will be used. Next attention was brought to placing the fiducial into the right iliac crest. 2 pins were placed and then the fiducial was attached to these. The C-arm was brought in and a spin was done around the patient. The information from the serum was loaded into the computer and loaded into the fiducial. And loaded into the gearshift and screw placement tools. The technique for placing the pedicle screws was to use a drill followed by the gearshift probe linked to computer navigation. Followed by the ball probe to feel the superior inferior medial lateral aguirre of the pedicles. Then placement of the screws linked to computer navigation. Was done at each pedicle. Screws were placed at L4 bilaterally and L5. Next attention was brought to performing the laminectomy ofL4. This was done using the high-speed bur Kerrisons and curettes. Once the lamina was removed and then attention was brought to performing a partial facetectomy on the contralateral side. This was done again using the high-speed bur curettes and Kerrisons. The ligamentum flavum was taken down bilaterally from L4 to L5. Attention was then brought to the facet on the ipsilateral side. The facet was taken down. The L5 nerve was decompressed as it passed around the L5 pedicle. The laminectomy was done for purposes of decompressing the nerve as well as placement of the cage. The L4 nerve was identified as it traversed through the L4/5 foramen. The thecal sac was identified and retracted. The L4/5 disc base was identified. Using a knife the disc base was opened. And then sequential saranya were placed. The first shaver was a 6 and the last shaver was a 11. Using a pituitary and down going curette the endplates were scraped and disc material was removed from the space. Once adequate decompression of the disc base was felt to be had. Osteoamp sponge was packed into the anterior aspect of the disc base. Then a size 11 cage from [employer] was placed after packing osteoamp into the cage. While placing the cage the thecal sac and L5 nerve was protected. C arm was used to ensure that the cages placed in the appropriate position. Attention was then brought to attaching the rods to the screws placed in the L4 and L5 bilaterally. Caps were torqued into position. Locking the construct in place. Wound was copiously irrigated and then attention was brought to decorticating the facets and transverse processes laterally. Bone that was taken down from the lamina was used along with osteoamp fibers and sponges were packed into the lateral gutters along the facet joints. This was done bilaterally. Wound was then closed in a layered fashion starting with the thoracolumbar fascia. 0-vicryl was used the sub cutaneous tissue was closed with 2-0 vicryl and skin with 4-0 monocryl. Glue was then used to seal the skin and a steril dressing was applied. Patient was then placed in the supine position. The endotracheal tube was removed and patient was transferred to the PACU in stable condition.
--- NOTE | 2021-03-09 12:54 | SUR.PHASEI ---
patient into pacu, simple mask in place, o2 at 8L and sats at 100%. patient asleep, no pain per faces. hemovac in place from surgical wound with small amount of drainage noted and charted. scds on pt. dressing to incision clean and dry and in place.
--- NOTE | 2021-03-09 12:59 | SUR.PHASEI ---
pt has landis in place and draining. aprox 25ml in bag.
--- NOTE | 2021-03-09 13:01 | SUR.PHASEI ---
patient able to move both legs, feet, toes. toes to both feet warm and pink, strong pedal pulses bilaterally. patient still asleep, no pain per faces.
[2021-03-09] MEDS: fentaNYL 50 mcg/mL INJ 2mL IVP (13:12)
--- NOTE | 2021-03-09 13:13 | SUR.PHASEI ---
PATIENT MORE AWAKE, STATES PAIN IN BACK IS UNCOMFORTABLE. PT MEDICATED PER ORDERS. SIMPLE MASK REMOVED, ROOM AIR SATS AT 94%.
--- NOTE | 2021-03-09 13:16 | ANE.PACU2 ---
Inpatient post-anesthesia follow up: Airway intact: Yes Vital signs: Temperature 97.0 F Pulse Rate 70 Respiratory Rate 18 Blood Pressure 133/76 Pulse Oximetry 95 Oxygen Delivery Me thod Simple Mask Oxygen Flow Rate 8 Fraction of Inspir ed Oxygen Hydration adequate: Yes Nausea and vomiting: No Pain level: 2 Mental status: Baseline
--- NOTE | 2021-03-09 13:47 | SUR.PHASEI ---
patient transported to 2nd floor 266. patient awake and alert, dressing still in place on back. hemovac in place and draining, patient able to move feet and toes, pedal pulses marked bilaterally, strong.
[2021-03-09] MEDS: ketorolac 30 mg/mL INJ IVP (14:15)
--- NOTE | 2021-03-09 15:04 | PC.CHAP ---
Pastoral Care Encounter/Spiritual Assessment Type of Contact [] Declined veterinarian laboratory animal care visit [] Patient/Family/Request visit [] Outpatient visit [] Follow-up visit [] Physician referral [] Code/Alert [] Routine visit [] Staff referral [] Actively dying [] Patient sleeping [] Family support [] [] Out of room [] Palliative care [] [] Receiving care in room [] Pre-surgical visit [] Trauma [] Long length of stay [] ICU visit [xx] Other: PPE REQUIRED Relational/Emotional Strength [] Patient feels connected with others/family/visitors/staff [] Distress [] Loneliness/isolation [] Abandonment Spirituality of Patient [] Person of [place]ush[place] [] Attends Bahai of their [place] [] Believes in Prayer [] Reads Bible or Adventist materials [] There are Spiritual issues to be addressed Investigative Agent Interventions [] Prayer [] Active listening [] Non-anxious presence [] Spiritual/emotional support [] Crisis/trauma care [] Spiritual counseling [] Bereavement support [] Provided bereavement packet [] Provided Bible/devotional materials [] Provided toy/stuffed animal, coloring book to patient or family member [] Provided Communion [] Anointing/[place] [] Salvation [] Completed spiritual assessment [] Other: Impact on Illness or Injury [] Angry [] Fearful [] Anxious [] Often cries [] Exhaustion [] Unable to work [] Unable to attend confucianist [] Unable to walk/stand [] Unable to read [] Unable to drive [] Unable to eat/drink [] Unable to sleep [] Unable to be with family [] Patient intubated [] Other: Summary Time spent with patient
[2021-03-09] MEDS: HYDROcodone-acetaminophen 5-325 mg Tablet PO (16:09)
[2021-03-09] MEDS: docusate sodium 100 mg Capsule PO (16:45)
[2021-03-10] VITALS: BP 113/73; PULSE 84; RESP 14; TEMP 36.4; O2SAT 92
[2021-03-10] MEDS: lactated ringers 1,000 ML 90 ML IV (00:18)
[2021-03-10 04:00] VITALS: BP 139/79; PULSE 92; RESP 92; TEMP 36.7; O2SAT 93
[2021-03-10] MEDS: clindamycin 900 MG/50 ML PREMIX 100 MG IV (04:19)
--- NOTE | 2021-03-10 05:27 | PC.NURSE ---
Emptied pt hemovac this morning and noticed what looked like clear oil deposits on the surface of the blood in the cylinder. Pt no complaint of headache and neurovas check out. This was not seen earlier when i emptied the drain mid shift. Will notify provider this am.
[2021-03-10] MEDS: enoxaparin 40 mg/0.4 mL Syringe SUBCUT (05:36)
--- NOTE | 2021-03-10 07:49 | PM.PN ---
Subjective Subjective: Interval history: POD 1 Patient resting comfortably. She reports her back and leg pain much improved. She denies any headaches. Denies any shortness of breath, chest pain. Vitals/I&O/Wt Last Vital Signs Temp 98.1 F 03/10/21 04:00 Pulse 92 03/10/21 04:00 Resp 92 H 03/10/21 04:00 BP 139/79 03/10/21 04:00 Pulse Ox 93 03/10/21 04:00 03/09/21 03/10/21 03/10/21 22:59 06:59 14:59 Intake Total 400 / 2650 50 / 2700 Output Total 350 / 800 475 / 1275 Balance 50 / 1850 -425 / 1425 Weight last 48 hrs Weight 163 lb Physical Exam Narrative: EXAM NARRATIVE: Patient presents alert and oriented x3 with a good general appearance normal normal affect. Normal coordination normal stability. Mild tenderness around the incisional site with the incision appearing C/D. Patient denies any fevers or chills. 5/5 motor strength both lower extremities with negative straight leg raise bilaterally. Calves are supple no medial thigh tenderness. Pulses are 2+ at the dorsalis pedis and posterior tibial region. Good capillary refill throughout normal sensation light touch both lower extremities. Urinary Catheter Management^: Fernandez: Cath Placed During This Visit: yes Reason for Continuing Indwelling Catheter: Perioperative Use in Selected Surgeries Urinary Catheter Date of Insertion: 03/09/21 Urinary Catheter Time of Insertion: 10:00 A&P Assessment and plan (1) Status post lumbar spinal fusion: Left physical therapy evaluate for ambulating with a walker. We will discontinue her Fernandez catheter and Hemovac drain. We will discharge her home later this morning early afternoon if medically stable. She will call the office in 1-2 week for follow-up. 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
[2021-03-10 07:57] VITALS: BP 126/75; PULSE 77; RESP 20; TEMP 36.6; O2SAT 94
[2021-03-10] MEDS: losartan 50 mg Tablet 25 MG PO (08:06)
[2021-03-10] MEDS: metoprolol succinate ER (24 HR) 25 mg Tablet PO (08:06)
[2021-03-10] MEDS: docusate sodium 100 mg Capsule PO (08:06)
--- NOTE | 2021-03-10 08:10 | P.DS_ITS ---
Discharge Providers Date of Admission: 03/09/21 13:35 Date of Discharge: March 10, 2021 Attending Provider at Admission: Timothy Hurley DO Attending Provider at Discharge: Timothy Hurley DO Primary Care Provider: Terrence Broussard MD Diagnoses at Discharge Discharge Diagnosis (1) Status post lumbar spinal fusion: Status: Acute Reason for Visit Reason for Visit: Spondylolisthesis Hospital Course Hospital Course Patient was admitted to the hospital on 03/09/2021 had an L4-5 posterior lumbar interbody fusion. Her stay was uneventful she was discharged on 03/10/2021. Physical Exam Urinary Catheter Management^: Fernandez: Cath Placed During This Visit: yes Reason for Continuing Indwelling Catheter: Perioperative Use in Selected Surgeries Urinary Catheter Date of Insertion: 03/09/21 Urinary Catheter Time of Insertion: 10:00 Discharge Data Data Completed and Pending: Completed Studies During Hospitalization Category Date Time Status XR lumbar spine 2 -3V* 79940 Routine Exams 03/09/21 Completed Pending at discharge Category Date Time Status C-arm Fluoroscopy 76057 Routine Exams 03/09/21 07:59 Taken Labs from last 24 hours 03/09/21 10:06 Blood Type O Positive Rho(D) Type Positive Antibody Screen Negative Vitals: Last Vital Signs Temp 97.8 F 03/10/21 07:57 Pulse 77 03/10/21 07:57 Resp 20 H 03/10/21 07:57 BP 126/75 03/10/21 07:57 Pulse Ox 94 03/10/21 07:57 Discharge Plan Discharge Patient Disposition: Home Condition: Stable Prescriptions: New hydrocodone-acetaminophen 5-325 mg tablet 1 - 2 tab PO .Q4-6H Qty: 40 RF: 0 Continued losartan 25 mg tablet 25 mg PO DAILY RF: 0 Calcium 600 with Vitamin D3 1 tab PO DAILY RF: 0 metoprolol succinate 25 mg Tablet Extended Release 24 Hr 25 mg PO DAILY RF: 0 multivitamin with minerals [Hair,Skin and Nails] Tablet 1 tab PO DAILY RF: 0 Discharge Orders: Discharge Order (Routine); Ordered 03/10/21 Ordered By: Timothy Hurley Discharge Diet: Advance as tolerated Discharge Activity: Limit activity as instructed Patient Instructions: Opioid Safety Activity Restrictions/Additional Instructions: Thank you for [facility] for your care! The following is a list of instructions, from your provider, to follow upon your discharge to ensure you have the optimal recovery from your recent injury or surgery. Follow-up care is a contreras part of your treatment and safety. Be sure to make and go to all appointments and call your doctor if you are having problems. If you do not already have a follow-up appointment made, call Dr. Hurley's] office in the next 1-3 days to make follow up appointment for mar 20 weeks at [phone]. It is also a good idea to know your test results and keep a list of the medicines you take. Medications will be prescribed for you at your provider's discretion. These medications are to be used as instructed; if they are taken more often that prescribed they will not be refilled early and in most cases will not be refilled at all. > When a refill is needed,you should contact oumar casarez 2-3 business days before your prescription runs out. Medications will NOT be refilled by repossession agent providers after hours! > Many pain medications contain Tylenol (Acetaminophen). Do not consume more than 4,000 mg of Tylenol per day in total with any combination ofmedications. > Pain medications can cause constipation. Please use an over the counter stool softener as directed, while taking pain medications. Consult your local pharmacist with questions or recommendations on stool softeners. If constipation persists, contact our office or your primary care provider. > While under our care, you are not to receive pain medications or other controlled substances from any other provider unless our office is notified and approves. Any attempts to do so will result in refusal to prescribe any further pain medications and possible dismissal from our practice. Keep dressing on at all times > Walking is essential for the healing process after surgery. We would like you to slowly advance your walking. This should be done on relatively flat clear ground (inside or out) or can be done on a treadmill. Remember this goal does not have to happen all at once, slowly increase your distance and duration. This can be broken into more more than one walk per day as tolerated. Patients who walk as directed after surgery rarely require Physical Therapy. In the unlikely event this issue arises your provider will direct hospital staff to make the appropriate arrangements. ? No lifting over 5 pounds {a gallon of milk) or bending/twisting until further notice. Each of these activities places an unnecessary amount of stress onto the body and can impede the delicate healing process. > Instead of bending at the waist, keep your back straight and bend at the knees. > Instead of twisting your torso, keep your back straight and turn your entire body with your feet. ? You may sleep in any position which makes you comfortable. Many patients find comfort sleeping in a reclining chair. It is not abnormal to have difficulty sleeping for the first several weeks following your surgery. We recommend trying Benadry! or Tylenol PM as directed to help with your sleeping difficulties. Both medications are over the counter and available without prescription. ? NO SMOKING!!! Smoking dramatically increases the probability of developing postoperative wound infections. ? Common complaints after lumbar and/or thoracic spine surgery include, but are not limited to: numbness and/or tingling in the legs, pain around the incision and surrounding tissues, muscle spasms, or stiffness of the middle to low back. Contact our office if these symptoms persist or if an acute change occurs. ? No driving until your next f/u appointment and not while taking narcotics. There are no restrictions for riding on short trips, however if you take a longer trip, arrangements should be made to make regular stops to get out of the vehicle and stretch . ? Swelling is an unfortunate event that will take place with any surgery and is the primary source of your postoperative discomfort. While walking and regular approved activities helps control inflammation, there are additional steps you can take to minimizeswelling. > Place ice over the surgical site and surrounding tissue for twenty minutes, followed by applying a low/medium heat (heating pad) for an additional twenty minutes every 1-2 hours as needed for painrelief. > You may use of over the counter anti-inflammatory medications (Ibuprofen, Motrin, Aleve, Advil, etc) as directed on the package label. These types of medicines wm significantly reduce the amount of discomfort you experience after surgery from swelling. It should be noted that if you have and allergy to any of these medications, or a history of ulcers or kidney disease you should consult you primary care provider prior to starting these medications. Discharge Attestations Time Spent in Discharge Care*: less than 30 min Quality Metrics Clinical Quality Measures During this hospital stay, did patient experience: None Coding Level of Care Code Acute Chg FW DC note Diagnoses Status post lumbar spinal fusion Z98.1
--- NOTE | 2021-03-10 08:17 | PC.NURSE ---
Hemovac drain removed at this time.
[2021-03-10] MEDS: HYDROcodone-acetaminophen 5-325 mg Tablet PO (09:53)
[2021-03-10 11:56] VITALS: BP 99/47; PULSE 71; RESP 15; TEMP 36.6; O2SAT 97
== END 2021-03-10 15:23 | disposition home or self-care (01) ==
LOC: MEDSURG 13:36
PROVIDERS: Admitting Provider Orthopaedic Surgery; PCP Family Medicine; Visit Provider Orthopaedic Surgery
PROC: (CPT 22612; principal; 2021-03-09 09:30)
DX: M43.16 Spondylolisthesis, lumbar region (principal); M48.062 Spinal stenosis, lumbar region with neurogenic claudication
CPT/HCPCS: 20930; 20936; 20939; 22633 ×2; 22840; 22853; 61783; 63047; 51702; 72100; 76000; 86850; 86900; 96372; 96374; 97116; 97161; 97530; C1713; G0378; J0330; J1100; J1200; J1644; J1650; J1885; J2250; J2405; J2704; J2710; J3010; J3370; J3490; J7030

== ENCOUNTER → 2021-04-24 14:24 | Outpatient (BNVA) | payer MEDICARE, OTHER, SELFPAY | PROVIDERS: PCP Family Medicine; Visit Provider Orthopaedic Surgery | DX: Z98.1 Arthrodesis status (principal) | CPT/HCPCS: 72100 ==

== ENCOUNTER → 2021-06-05 11:50 | Outpatient (BNVA) | payer MEDICARE, OTHER, SELFPAY | PROVIDERS: PCP Family Medicine; Visit Provider Orthopaedic Surgery | DX: Z47.89 Encounter for other orthopedic aftercare (principal); Z98.1 Arthrodesis status | CPT/HCPCS: 72100 ==

== ENCOUNTER → 2021-12-06 09:32 | Outpatient (BNVA) | payer MEDICARE, OTHER, SELFPAY | PROVIDERS: PCP Family Medicine; Visit Provider Physician Assistant | DX: M25.512 Pain in left shoulder (principal); M25.511 Pain in right shoulder; Z47.89 Encounter for other orthopedic aftercare; Z98.1 Arthrodesis status | CPT/HCPCS: 72100; 99213 ==

== ENCOUNTER → 2022-05-23 10:56 | Outpatient (BNVA) | payer MEDICARE, OTHER, SELFPAY | PROVIDERS: PCP Family Medicine; Visit Provider Family Medicine | DX: E55.9 Vitamin D deficiency, unspecified (principal); I10 Essential (primary) hypertension; Z13.220 Encounter for screening for lipoid disorders; Z51.81 Encounter for therapeutic drug level monitoring; Z48.89 Encounter for other specified surgical aftercare | CPT/HCPCS: 80053; 80061; 82306; 85025 ==

== ENCOUNTER → 2022-06-05 13:37 | Outpatient (BNVA) | payer MEDICARE, OTHER, SELFPAY | PROVIDERS: PCP Family Medicine; Referring Provider Family Medicine; Visit Provider Orthopaedic Surgery | DX: M65.332 Trigger finger, left middle finger (principal) | CPT/HCPCS: 20550; 20552; 99213; J0702; J3490 ==

== ENCOUNTER 2023-02-19 12:41 | Outpatient (CLI) | payer MEDICARE, OTHER, SELFPAY ==
--- NOTE | 2023-02-19 13:26 | MM_ITS ---
WS: [id number] BILATERAL 3D TOMOSYNTHESIS DIGITAL SCREENING MAMMOGRAPHY WITH CAD CLINICAL INFORMATION: Z12.39 - Encounter for other screening for malignant neop... HISTORY: Screening mammogram. No current complaints. COMPARISON: 2014 TECHNIQUE: Bilateral CC and MLO views. FINDINGS: Scattered fibroglandular densities bilaterally. No suspicious focal mass, asymmetry, calcifications, or architectural distortion. No evidence of malignancy. Incidental punctate calcifications. Vascular calcifications. IMPRESSION: MM/[place] [id number] BI-RADS: 2-Benign FOLLOW UP: 1 Year Follow-up Recommend return to annual screening mammography.
== END 2023-02-19 12:42 | disposition home or self-care (01) ==
LOC: RAD 12:41
PROVIDERS: PCP Family Medicine; Visit Provider Family Medicine
DX: Z12.31 Encounter for screening mammogram for malignant neoplasm of breast
CPT/HCPCS: 77063; 77067

== ENCOUNTER → 2023-03-14 09:02 | Outpatient (BNVA) | payer MEDICARE, OTHER, SELFPAY | PROVIDERS: PCP Family Medicine; Visit Provider Family Medicine | DX: Z51.81 Encounter for therapeutic drug level monitoring (principal); Z01.818 Encounter for other preprocedural examination | CPT/HCPCS: 80053; 85025 ==

== ENCOUNTER 2023-03-18 14:33 | Observation (INO) | payer MEDICARE, OTHER, SELFPAY ==
[2023-03-14 11:33] LABS: Add Urine Microscopic? NO; Charge for UA Resulting for Rev
--- NOTE | 2023-03-14 11:40 | ANES.PREANE2 ---
Pre-Anesthetic Assessment Height/Weight: Height 1.55 m Operation Date: 03/18/23 11:10 Proposed Procedures p Anterior Colporrhaphy 36293(Not Applicable) - Alexy Guzman MD s Posterior Colporrhaphy(Not Applicable) - Alexy Guzman MD p Single incision sling 28535,N81.10,N81.6(Not Applicable) - Alexy Guzman MD Familial anesthetic complications: none Was Beta Kayla taken within 24 hours: Yes Was Clonidine taken within 24 hours: N/A Social No alcohol and No tobacco Exam alert, oriented x 3, clear to auscultation bilaterally and regular rate & rhythm Airway Submandibular: within normal limits Cervical ROM: within normal limits Mallampati: Class II Dentition: chipped CV/HEM Hypertension Metabolic Hyperlipidemia Musc/skel Lower Back Pain and Osteoarthritis/DJD Anesthetic Plan ASA status: 2 Anesthesia: General Medications/Allergies Home Medications Medication Instructions Recorded Confirmed Last Taken Type Calcium 600 with Vitamin D3 1 tab PO DAILY 06/01/19 03/14/23 03/14/23 History multivitamin with minerals 1 tab PO DAILY 08/02/20 03/14/23 03/14/23 History (Hair,Skin and Nails tablet) metoprolol succinate 25 mg 25 mg PO DAILY #90 tabs 04/15/22 03/14/23 03/14/23 Rx tablet,extended release 24 hr atorvastatin 10 mg tablet 10 mg PO DAILY 03/14/23 03/14/23 03/14/23 History losartan 50 mg tablet 50 mg PO DAILY 03/14/23 03/14/23 03/14/23 History Allergies Allergy/AdvReac Type Severity Reaction Status Date / Time cephalexin Allergy Unknown rash Verified 03/14/23 11:09 [facility] Anesthesia Medical History Hypertension Surgical History (Updated 03/14/23 @ 08:21 by Terrence Broussard MD) History of tubal ligation Possibly removed appendix at the same time Hx of cataract surgery H/O right wrist surgery Nicolette History of lumbar surgery Dr Hurley Status post total left knee replacement Status post total right knee replacement last year Social History Alcohol intake: never Substance/Drug Use: never Data Anesthesia Cardiac Studies: No Data to Display
[2023-03-14 11:47] LABS: Bilirubin Urine Neg (Negative); Blood Urine Neg (Negative); Glucose Urine UA Norm (Normal); Ketones Urine Negative (Negative); Leukocyte Esterase Urine Negative (Negative); Nitrate Urine Negative (Negative); Protein Urine Neg (Negative); Specific Gravity, Urine 1.005 (1.005-1.030); Urine Appearance Clear (CLEAR); Urine Color Yellow (Yellow); Urobilinogen Urine Norm (Negative); pH Urine 6.5 (5-7)
[2023-03-18] VITALS (16 sets, daily range): BP systolic 135–159; BP diastolic 79–96; PULSE 70–118; RESP 14–24; TEMP 36.1–36.7; O2SAT 93–100; BMI 30.3
--- NOTE | 2023-03-18 09:39 | P.ANESUD_ITS ---
Pre-Anesthetic Update Pre-Anesthetic Assessment: Date of Surgery/Procedure: 03/18/23 Preop Alyssia gnosis: cystocele, rectocele, mixed incontinence Proposed Procedure: Operation Date: 03/18/23 11:10 Proposed Procedures p Anterior Colporrhaphy 40537(Not Applicable) - Alexy Guzman MD s Posterior Colporrhaphy(Not Applicable) - Alexy Guzman MD p Single incision sling 82474,N81.10,N81.6(Not Applicable) - Alexy Guzman MD Any changes to Pre-Anesthetic Assessment?: No Last Intake: > 8hrs Exam: Pre-Anes Outpt Exam: alert, oriented x 3, clear to auscultation bilaterally and regular rate & rhythm Cardiac Studies: No Data to Display
[2023-03-18] MEDS: sodium chloride 0.9% 1,000 ML 30 ML IV (09:50)
[2023-03-18] MEDS: enoxaparin 40 mg/0.4 mL Syringe SUBCUT (09:54)
[2023-03-18] MEDS: vancomycin 1,000 MG in sodium chloride 0.9% 250 ML 250 MG IV (10:08)
--- NOTE | 2023-03-18 10:28 | W.PM.OPSUD ---
Surgery/Procedure H&P Update DATE OF PROCEDURE: March 18, 2023 DATE H&P PERFORMED: 03/10/23 H&P UPDATE INFORMATION: I have reviewed H&P completed within last 30 days, I have examined patient prior to procedure and No changes to prior documentation PREOP DIAGNOSIS: cystocele, rectocele, mixed incontinence PLANNED PROCEDURE: Operation Date: 03/18/23 11:10 Proposed Procedures p Anterior Colporrhaphy 33685(Not Applicable) - Alexy Guzman MD s Posterior Colporrhaphy(Not Applicable) - Alexy Guzman MD p Single incision sling 36503,N81.10,N81.6(Not Applicable) - Alexy Guzman MD
[2023-03-18] MEDS: lidocaine-epi 2% 20 mL INJ INJECTION (11:06)
[2023-03-18] MEDS: estrogens Conjugated Cream 30 gm 1 APPLIC VAGINAL (12:01)
--- NOTE | 2023-03-18 12:09 | PM.OP ---
Operative Report Date of procedure: March 18, 2023 Pre-op diagnosis: Cystocele Urinary incontinence Post-op diagnosis: Same as above Procedure done: Anterior colporrhaphy augmented with allograft. Single incision mid urethral sling Implants: Coloplast Altis sling Surgeon: Alexy Guzman MD Estimated blood loss (mL): 20 IV fluids (mL): 1,000 Urine output (mL): 300 Complications: none Procedure: After obtaining informed consent, the patient was taken to the operating room and placed in the supine position, given general anesthesia, and prepped and draped in sterile fashion. The abdomen, vulva and vagina were prepped and draped in a sterile manner. A time out procedure was performed. The anterior vaginal mucosa beneath the midurethra was infiltrated with 0.5% Marcaine with epinephrine. A vertical midline incision was made beneath the midurethra, nearly 1.5 cm length. Careful submucosal dissection was performed bilaterally up to the interior portion of the inferior pubic ramus. The insertion of adductor longus tendon on the patient?s pubic ramus was identified as reference land sudheer. Palpated the notch along the internal edge of ischiopubic ramus where the adductor longus tendon and the inferior pubic ramus meet. The Altis single incision sling (SIS) was selected. Then the needle of the SIS inserted aiming at the location of this notch. One of the integrated self-fixating tips place onto the needle by sliding it over the end of the needle. The needle/sling assembly was inserted toward the location of identified reference notch making sure that the flat of the handle is perpendicular to the desired path. The needle was tracked along the posterior surface of the ischiopubic ramus until the midline sudheer on the mesh is approximately at the midline position under the urethra. The needle was removed and the same was repeated on the contralateral side until the appropriate sling tension under the urethra was achieved ensuring that the mesh lays flat. The needle was removed and vaginal incision was closed in a running interlocking fashion with 2-0 Vicryl. The vaginal mucosa was then injected in the midline with normal saline. The vaginal mucosa was scored in the midline with the Bovie approximately 1 cm medial to the urethral meatus to 1 cm distal to the vaginal cuff. This vaginal mucosa was then undermined and then incised in the midline with the Metzenbaum scissors. The lateral aspects of the vaginal mucosa were then grasped with the Allis clamps and the vaginal mucosa was then dissected off the underlying fascia with the Metzenbaum scissors. Again, there was noted to be quite a bit of oozing at the incision, which was controlled with cautery. After adequate dissection was performed, bilaterally. An Coloplast dermis allograft modified at time of application to fit spacea, 3 x 3 cm piece . The allograft placed in front of cystocele ready to be implanted facing the vagina mucosa. Suture is placed at distal end of graft and placed towards vaginal cuff. Final suture is placed on proximal portion of the graft to complete the placement overlying the bladder. Then Interrupted vertical mattress sutures of 0 Vicryl were used to elevate the cystocele superiorly. The excessive vaginal mucosa was then trimmed with the Metzenbaum scissors and the vaginal mucosa was then reapproximated in the running interlocking fashion with 2-0 Vicryl. She was given Bludigo IV. Excellent hemostasis was obtained. Fernandez catheter was noted yielding clear blue urine. A vaginal pack is placed overnight as postoperative support for the vaginal tissues after graft placement and closure of vaginal incisions. Sponge, lap, needle, and instrument counts were correct times three. The patient was taken to the recovery room, awake and in stable condition.
--- NOTE | 2023-03-18 13:42 | ANE.PACU2 ---
Inpatient post-anesthesia follow up: Airway intact: Yes Vital signs: Temperature 97 F Pulse Rate 105 Respiratory Rate 18 Blood Pressure 136/94 Pulse Oximetry 93 Oxygen Delivery Me thod Room Air Oxygen Flow Rate 6 Fraction of Inspir ed Oxygen Hydration adequate: Yes Nausea and vomiting: No Pain level: 1 Mental status: Baseline
[2023-03-18] MEDS: ketorolac 30 mg/mL INJ IVP ×2 (15:25→20:51)
[2023-03-18] MEDS: dextrose 5%-lactated ringers 1,000 ML 125 ML IV ×2 (15:25→23:59)
[2023-03-18] MEDS: docusate sodium 100 mg Capsule PO (17:06)
[2023-03-19] VITALS: BP 146/72; PULSE 77; RESP 17; TEMP 36.4; O2SAT 95
[2023-03-19] MEDS: ketorolac 30 mg/mL INJ IVP ×2 (03:14→10:12)
[2023-03-19 04:00] VITALS: BP 132/79; PULSE 76; RESP 17; TEMP 36.6; O2SAT 95
--- NOTE | 2023-03-19 05:18 | PC.NURSE ---
Fernandez and vaginal packing removed at 0500.
[2023-03-19 06:16] LABS: Hematocrit 35.5 % (36-47); Mean Corpuscular HGB Conc 32.4 g/dL (30-55); Mean Corpuscular Hemoglobin 31.9 pg (27-33); Mean Corpuscular Volume 98.3 fl (85-98); Mean Platelet Volume 9.1 fL (7.4-10.4); Platelet Count 225 10^3/cmm (157-399); Red Blood Count 3.61 10^6/uL (3.85-5.65); Red Cell Distribution Width 12.1 % (12.1-15.1); White Blood Count 7.48 10^3/uL (3.29-11.43)
[2023-03-19] MEDS: dextrose 5%-lactated ringers 1,000 ML 125 ML IV (07:44)
[2023-03-19 07:57] VITALS: BP 145/79; PULSE 76; RESP 18; TEMP 36.7; O2SAT 95
[2023-03-19] MEDS: calcium carb-vit d 600mg/400unit 1 Tablet 1 EACH PO (10:05)
[2023-03-19] MEDS: metoprolol succinate ER (24 HR) 25 mg Tablet PO (10:05)
[2023-03-19 10:06] VITALS: BP 145/79
[2023-03-19] MEDS: losartan 50 mg Tablet PO (10:06)
[2023-03-19] MEDS: docusate sodium 100 mg Capsule PO (10:06)
[2023-03-19] MEDS: atorvastatin 40 mg Tablet 20 MG PO (10:06)
--- NOTE | 2023-03-19 11:13 | PC.CHAP ---
Pastoral Care Encounter/Spiritual Assessment Type of Contact [] Declined medical stenographer visit [] Patient/Family/Request visit [] Outpatient visit [] Follow-up visit [] Physician referral [] Code/Alert [x] Routine visit [] Staff referral [] Actively dying [] Patient sleeping [x] Family support [] [] Out of room [] Palliative care [] [] Receiving care in room [] Pre-surgical visit [] Trauma [] Long length of stay [] ICU visit [] Other: Relational/Emotional Strength [] Patient feels connected with others/family/visitors/staff [] Distress [] Loneliness/isolation [] Abandonment Spirituality of Patient [] Person of [place] [] Attends Church of their [place] [] Believes in Prayer [] Reads Bible or Rastafari materials [] There are Spiritual issues to be addressed Spa Technician Interventions [x] Prayer [x] Active listening [] Non-anxious presence [] Spiritual/emotional support [] Crisis/trauma care [] Spiritual counseling [] Bereavement support [] Provided bereavement packet [] Provided Bible/devotional materials [] Provided toy/stuffed animal, coloring book to patient or family member [] Provided Communion [] Anointing/[place] [] Salvation [] Completed spiritual assessment [] Other: Impact on Illness or Injury [] Angry [] Fearful [] Anxious [] Often cries [] Exhaustion [] Unable to work [] Unable to attend religion [] Unable to walk/stand [] Unable to read [] Unable to drive [] Unable to eat/drink [] Unable to sleep [] Unable to be with family [] Patient intubated [] Other: Summary Time spent with patient 15 min
[2023-03-19 11:24] VITALS: BP 145/80; PULSE 80; RESP 19; TEMP 36.8; O2SAT 95
--- NOTE | 2023-03-19 16:02 | PM.OBGYDC ---
Discharge Providers DIVISION CHIEF Date of Admission: 03/18/23 14:33 Date of Discharge: 03/19/23 Attending Provider at Admission: Alexy Guzman MD Attending Provider at Discharge: Alexy Guzman MD Primary Care Provider: Terrence Broussard MD Reason for Visit Reason for Visit: 47085 N81.10 Hospital Course Hospital Course Mrs. Curiel 73-year-old female with a history of cystocele, rectocele and urinary incontinence. She was admitted for planned anterior colporrhaphy and single incision mid urethral sling, and posterior colporrhaphy. The the anterior colporrhaphy augmented with allograft and single incision sling were performed without complication. After anterior repair and sling no need for posterior repair was done noted. She is afebrile and hemodynamically stable postoperative day 1. Postoperative observation uneventful. Tolerating diet well. Ambulating without difficulty. PVR was elevated and the patient was counseled she will need to go home with a Fernandez catheter and to follow-up at the clinic Friday to discontinue the Fernandez cath. She was counseled regarding pelvic rest for 6 weeks (no sex, no tampons, no vaginal douches). Return to the emergency room if any fever, increased bleeding or pain. Physical Exam Narrative: GA: Alert and oriented ?3. HEENT: WNL. Heart: Regular rate and rhythm. Lungs: Clear to auscultation bilaterally. Abdomen: Bowel sounds present, nontender, minimal tenderness, incision clean and dry, no redness, pain or edema. ASBESTOS SURVEYOR: No bleeding. Extremities: No edema, no cyanosis, no calves pain. Urinary Catheter Management: Fernandez: Cath Placed During This Visit: yes, but has since been removed by the nurse Reason for Continuing Indwelling Catheter: Decision to DC Catheter Urinary Catheter Date of Insertion: 03/18/23 Urinary Catheter Time of Insertion: 10:57 Date Urinary Catheter Removed: 03/19/23 Time Urinary Catheter Discontinued: 05:17 History History History 2 Term 2 0 Miscarriages/Ectopic 0 Living Children 2 Discharge Data Studies Completed and Pending Laboratory Results WBC 7.48 10^3/uL (3.29-11.43) 03/19/23 05:31 RBC 3.61 10^6/uL (3.85-5.65) L 03/19/23 05:31 Hgb 11.50 g/dL (11.27-16.99) 03/19/23 05:31 Hct 35.5 % (36-47) L 03/19/23 05:31 MCV 98.3 fl (85-98) H 03/19/23 05:31 MCH 31.9 pg (27-33) 03/19/23 05:31 MCHC 32.4 g/dL (30-55) 03/19/23 05:31 RDW 12.1 % (12.1-15.1) 03/19/23 05:31 Plt Count 225 10^3/cmm (157-399) 03/19/23 05:31 MPV 9.1 fL (7.4-10.4) 03/19/23 05:31 Urine Color Yellow (Yellow) 03/14/23 11:04 Urine Appearance Clear (CLEAR) 03/14/23 11:04 Urine pH 6.5 (5-7) 03/14/23 11:04 Ur Specific Dodge 1.005 (1.005-1.030) 03/14/23 11:04 Urine Protein Neg (Negative) 03/14/23 11:04 Urine Glucose (UA) Norm (Normal) 03/14/23 11:04 Urine Ketones Negative (Negative) 03/14/23 11:04 Urine Blood Neg (Negative) 03/14/23 11:04 Urine Nitrate Negative (Negative) 03/14/23 11:04 Urine Bilirubin Neg (Negative) 03/14/23 11:04 Urine Urobilinogen Norm mg/dL (Negative) 03/14/23 11:04 Ur Leukocyte Esterase Negative (Negative) 03/14/23 11:04 Blood Type O Positive 03/18/23 09:40 Rho(D) Type Rh positive 03/18/23 09:40 Antibody Screen Negative 03/18/23 09:40 Vitals Last Vital Signs Temp 98.2 F 03/19/23 11:24 Pulse 80 03/19/23 11:24 Resp 19 H 03/19/23 11:24 BP 145/80 03/19/23 11:24 Pulse Ox 95 03/19/23 11:24 O2 Del Method Room Air 03/19/23 11:24 O2 Flow Rate 6 03/18/23 12:20 Results Labs OB ([facility]): Blood Type O Positive 03/18/23 Antibody Screen Negative 03/18/23 Hct 35.5 % (36-47) L 03/19/23 Hgb 11.50 g/dL (11.27-16.99) 03/19/23 Rho(D) Type Rh positive 03/18/23 Plt Count 225 10^3/cmm (157-399) 03/19/23 Discharge Plan Discharge Patient Disposition: Home Condition: Stable Prescriptions: New acetaminophen 325 mg capsule 325 mg PO Q4H PRN (Reason: fever or pain) Qty: 60 0RF ibuprofen 800 mg tablet 800 mg PO TID PRN (Reason: pain) Qty: 60 0RF Continued metoprolol succinate 25 mg tablet extended release 24 hr 25 mg PO DAILY Qty: 90 3RF Calcium 600 with Vitamin D3 1 tab PO DAILY Hair,Skin and Nails Tablet 1 tab PO DAILY losartan 50 mg tablet 50 mg PO DAILY Rx Instructions: TAKE 1 TABLET BY MOUTH DAILY atorvastatin 10 mg tablet 10 mg PO DAILY Rx Instructions: TAKE 1 TABLET BY MOUTH DAILY Discharge Orders: Discharge Order (Routine); Ordered 03/19/23 Ordered By: Alexy Guzman Discharge Diet: Usual diet Discharge Activity: Limit activity as instructed Patient Instructions: Bladder Sling for Women (GEN), Anterior Vaginal Repair (GEN), Opioid Safety Activity Restrictions/Additional Instructions: 1. Please call [facility] on next working day to make your post-operative appointment in 2 weeks. 2. Please stay home until you come back to the clinic on first post-hospatilization check up. 3. Please follow instructions on your medications CAREFULLY. 4. If you have abdominal incision, do not cover it unless dressing is necessary because of drainage. OK to shower, but avoid bath. Leave steri-strips until they fall off. If they are still on one week after surgery, you may remove them. 5. If you had vaginal surgery or vaginal repair, Dr. Guzman may instruct you to take SITZ bath. 6. Yellow, blood tinged odorous vaginal discharge is usually normal after hysterectomy or vaginal surgeries. 7. No SEXUAL INTERCOURSE, tampons, or douches until you are completely released from the post-operative care. 8. Avoid constipation by eating right and maybe using some Metamucil or Milk of Magnesia. 9. All prescription refills are given during the working hours. Please do no wait till it runs out. Call the clinic at [phone] before your medication runs out. The clinic will get in touch with your doctor to prescribe medications if necessary. 10. Please remain within 40 mile radius from our hospital because emergencies do happen now and then during the post-operative period. 11. If you have stairs at home, take one step at a time slowly and minimize the number of trips. It helps to stay in one floor for the next few days. No lifting except what you can lift by one hand until you are released from the post-operative care. 12. Driving is discouraged until you are well healed. It may be 3-4 weeks before you feel strong enough to drive. You should be able to turn and look through the rear window without pain and you should be able to push the brake pedal very hard without pain before you drive. No fast rules, but SAFETY should be your primary concern. DO NOT drive if you are on sedating medications such as narcotics. 13. Call the clinic (during working hours) to make urgent appointment or go to the Emergency room, if any of the following occurs: i. Vaginal bleeding becomes heavy, more than a period. ii. Incision becomes red and sore, or drains pus. iii. Your TEMPERATURE is over 100.4F or you have chill. iv. IV site becomes red and swollen (a little ``knot?? is usually OK) v. Persistent nausea and vomiting vi. Persistent constipation or diarrhea vii. Rash or allergic reaction to medications. Discharge Attestations DIVISION CHIEF Time Spent in Discharge Care*: greater than 30 min Coding Level of Care Code Acute Code for Chg Fwchristine
[2023-03-19 17:19] VITALS: BP 134/74; PULSE 74; RESP 18; TEMP 36.7; O2SAT 94
== END 2023-03-19 18:38 | disposition home or self-care (01) ==
LOC: MEDSURG 14:36
PROVIDERS: Admitting Provider Obstetrics & Gynecology; PCP Family Medicine; Visit Provider Obstetrics & Gynecology
PROC: 0JQC0ZZ Repair Pelvic Region Subcutaneous Tissue and Fascia, Open Approach (ICD-10-PCS; CPT 57240; principal; 2023-03-18 11:00)
PROC: (CPT 57288; 2023-03-18 11:00)
DX: N81.10 Cystocele, unspecified (principal); N81.6 Rectocele; N39.46 Mixed incontinence; N81.9 Female genital prolapse, unspecified; Z90.49 Acquired absence of other specified parts of digestive tract; Z87.891 Personal history of nicotine dependence; I10 Essential (primary) hypertension; E78.5 Hyperlipidemia, unspecified
CPT/HCPCS: 57240; 57267; 57288; 36415; 51702; 51798; 81003; 85027; 86850; 86900; C1713; C1762; G0378; J1100; J1650; J1885; J2371; J2405; J2704; J3010; J3370; J3490; J7030; J7050; J7121

== ENCOUNTER 2023-12-30 13:01 | Outpatient (CLI) | payer MEDICARE, SELFPAY ==
--- NOTE | 2023-12-30 13:11 | XR_ITS ---
WS: [id number] XR cervical spine 4-5V [id number] REASON FOR EXAM: Cervical radiculopathy - left FINDINGS: C7 not well visualized. Normal lordosis of the cervical spine. No significant vertebral body abnormality. Normal odontoid. Moderate narrowing of the C4-5 disc space with mild narrowing of the C5-C6 disc space. 2 mm of anterolisthesis of C5 in relation to C4. XR/XR cervical spine 4-5V [id number] IMPRESSION: Cervical degenerative spondylosis as above.
--- NOTE | 2023-12-30 13:11 | XR_ITS ---
WS: [id number] XR shoulder LT min 2V* [id number] REASON FOR EXAM: Left shoulder pain FINDINGS: Moderate narrowing of the acromioclavicular joint with mild subchondral sclerosis and osteophytosis. The acromial process has a downward slant and prominent bony projection toward the humeral head. Glenohumeral joint space is not optimally demonstrated but appears only minimally narrowed with mild subchondral sclerosis of the glenoid. There is moderate sclerosis and cystic change in the greater biceps tuberosity. 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 Joint. Mild osteoarthritis in the glenohumeral joint. Moderate rotator cuff tendon arthropathy with acromial configuration with poten tial for anterior impingement.
--- NOTE | 2023-12-30 13:11 | XR_ITS ---
WS: [id number] XR shoulder RT min 2V* [id number] REASON FOR EXAM: Right shoulder pain FINDINGS: No fracture or focal bone lesion. Moderate narrowing of the acromioclavicular joint space with mild to moderate subchondral sclerosis a nd osteophytosis. Large undersurface osteophytosis of the acromial process. Mild narrowing of the sup erior aspect of the glenohumeral joint with moderate subchondral sclerosis and cystic change in the g lenoid. Possible loose bodies within the glenohumeral joint space. Significant sclerosis and cystic change in the greater biceps tuberosity. 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 Moderate osteoarthritis in the glenohumeral joint with possible loose bodies. Significant rotator cuff arthropathy and an acromial configuration with high po tential for anterior impingement on the rotator cuff tendon.
== END 2023-12-30 13:02 | disposition home or self-care (01) ==
LOC: RAD 13:04
PROVIDERS: PCP Family Medicine; Visit Provider Family Medicine
DX: M54.12 Radiculopathy, cervical region (principal); M19.012 Primary osteoarthritis, left shoulder; M25.712 Osteophyte, left shoulder; M19.011 Primary osteoarthritis, right shoulder; M43.12 Spondylolisthesis, cervical region; M48.02 Spinal stenosis, cervical region
CPT/HCPCS: 72050; 73030

== ENCOUNTER 2024-05-28 08:34 | Outpatient (CLI) | payer MEDICARE, OTHER, SELFPAY ==
--- NOTE | 2024-05-28 08:40 | MM_ITS ---
WS: [id number] BILATERAL SCREENING DIGITAL TOMOSYNTHESIS MAMMOGRAM WITH CAD HISTORY: Z12.39 - Encounter for other screening for malignant neop... COMPARISON: 02/19/2023, 03/15/2015 Bilateral CC and MLO views with tomosynthesis and synthetic mammography submitted. Computer aided detection analyzed. Breast composition: There are scattered areas of fibroglandular density. No suspicious masses, microcalcifications or architectural distortion. Arterial calcifications within each breast. There are a few additional benign scattered calcifications within the skin. MM/MM scr tomosynthesis [id number] IMPRESSION: BI-RADS: 2 - Benign. FOLLOW UP: 1 Year Follow-up
== END 2024-05-28 08:35 | disposition home or self-care (01) ==
LOC: RAD 08:35
PROVIDERS: PCP Family Medicine; Visit Provider Obstetrics & Gynecology
DX: Z12.39 Encounter for other screening for malignant neoplasm of breast (principal); Z12.31 Encounter for screening mammogram for malignant neoplasm of breast; R92.323 Mammographic fibroglandular density, bilateral breasts; R92.1 Mammographic calcification found on diagnostic imaging of breast
CPT/HCPCS: 77063; 77067

== ENCOUNTER → 2024-06-16 09:49 | Outpatient (BNVA) | payer MEDICARE, OTHER, SELFPAY | PROVIDERS: PCP Family Medicine; Visit Provider Nurse Practitioner Family | DX: L81.4 Other melanin hyperpigmentation (principal); D22.5 Melanocytic nevi of trunk; L57.8 Other skin changes due to chronic exposure to nonionizing radiation; L57.0 Actinic keratosis; X32.XXXA Exposure to sunlight, initial encounter | CPT/HCPCS: 17000; 99213 ==